=== PATIENT | female | born 1990 | race Hispanic/Latino ===

== ENCOUNTER 2017-03-20 16:11 | Emergency (ER) | payer SELFPAY ==
[~2017-03-20] VITALS: Ht 147.3 cm; Wt 63.5 kg
[~2017-03-20 16:11] MED LIST: CEPH-507 PO; CLIN300C11 PO; GLYB2.5T4 PO; HYDR-3812 PO; IBUP-1773 PO; METR500T21 PO; NITR-65 PO; ONDA8TAB13 PO; PHEN-639 PO; PNV1TABL67 PO; SULF1TAB35 PO; tylenol
[2017-03-20] MEDS ORDERED: HYDROcodone/APAP 5 MG/325 MG (LORTAB) TAB PO ONE (17:00)
[2017-03-20 17:29] LABS: BILIRUBIN,URINE NEGATIVE (NEGATIVE); KETONES,URINE NEGATIVE (NEGATIVE); LEUKOCYTE ESTERASE ,URINE NEGATIVE (NEGATIVE); NITRITE,URINE NEGATIVE (NEGATIVE); PH,URINE 7 (5-9); PROTEIN,URINE NEGATIVE (NEGATIVE); UROBILINOGEN,URINE NORMAL (NORMAL)
[2017-03-20 17:34] LABS: BASOPHILS # (AUTO) 0.1 10^3/uL (0.0-0.1); BASOPHILS % (AUTO) 1 % (0-10); EOSINOPHILS # (AUTO) 0.5 10^3/uL (0.0-0.3); EOSINOPHILS % (AUTO) 6 % (0-10); LYMPHOCYTES # (AUTO) 2.2 X 10^3 (1.0-4.0); LYMPHOCYTES % (AUTO) 24 % (12-44); MEAN CORPUSCULAR HGB CONC 34 G/DL (32-36); MEAN CORPUSCULAR VOLUME 86 FL (80-99); MEAN PLATELET VOLUME 10.7 FL (7.4-10.4); MONOCYTES # (AUTO) 0.6 X 10^3 (0.0-1.0); MONOCYTES % (AUTO) 7 % (0-12); NEUTROPHILS # (AUTO) 5.8 X 10^3 (1.8-7.8); NEUTROPHILS % (AUTO) 63 % (42-75)
[2017-03-20 17:43] LABS: ALANINE AMINOTRANSFERASE 66 U/L (0-55); ALBUMIN 4.4 GM/DL (3.2-4.5); ANION GAP 13 MMOL/L (5-14); ASPARTATE AMINO TRANSFERASE 35 U/L (5-34); BILIRUBIN,TOTAL 0.9 MG/DL (0.1-1.0); BLOOD UREA NITROGEN 12 MG/DL (7-18); BUN/CREATININE RATIO 17 (0-20); CALCIUM 9.4 MG/DL (8.5-10.1); CARBON DIOXIDE 22 MMOL/L (21-32); CHLORIDE 104 MMOL/L (98-107); GFR ESTIMATED > 60; GLUCOSE 125 MG/DL (70-105); HEMOLYSIS 12 (-100-29); LIPEMIA 4 (-100-49); MEAN CORPUSCULAR HEMOGLOBIN 29 PG (25-34); PLATELET COUNT 210 10^3/uL (130-400); POTASSIUM 3.6 MMOL/L (3.6-5.0); RED BLOOD COUNT 5.11 10^6/uL (4.35-5.85); SODIUM 139 MMOL/L (135-145); TOTAL PROTEIN 7.7 GM/DL (6.4-8.2); WHITE BLOOD COUNT 10.3 10^3/uL (4.3-11.0); hs C REACTIVE PROTEIN 0.34 MG/DL (0.00-0.50)
--- NOTE | 2017-03-20 17:47 | Diagnostic Imaging Report ---
INDICATION: Headache for two days. EXAMINATION: CT brain without contrast, 03/20/2017. FINDINGS: Multiple axial images of the brain without contrast. There is no evidence for acute hemorrhage or infarct. There is no mass, mass effect, midline shift or hydrocephalus. The paranasal sinuses and mastoid air cells demonstrate no acute abnormality. IMPRESSION: No acute intracranial process. Dictated by: Dictated on workstation # [id number]
[2017-03-20 17:49] LABS: SQUAMOUS EPITHELIAL CELL,UR 25-50 /HPF
--- NOTE | 2017-03-20 18:02 | ED Headache ---
General Chief Complaint: Head/Cervical Problems Stated Complaint: MIGRAINE/NAUSEA Nursing Triage Note: AMBULATED TO ROOM 07 WITH COMPLAINTS OF HEADACHE X2 DAYS. HAS TAKEN TYLENOL WITH NO RELEAF. WAS SEEN AT THE CLINIC FOR "WAIST PAIN" 2 DAYS AGO AND PRESCRIBED MEDS BUT STATES SHE IS HERE FOR HER HEAD. PT SPEAKS [place] ONLY ET LANGUAGE LINE USED. Nursing Sepsis Screen: No Definite Risk Source: patient, family Exam Limitations: language barrier History of Present Illness Time seen by provider: 17:00 Initial Comments This is a 18-year-old white female presents with a headache of 2 days' duration. The patient is taking Tylenol without relief. The patient has had no associated fever or chills. The patient is complaining of pain in her neck with head motion and mild photophobia. She has had no nausea or vomiting. The patient's recent past medical history includes lower abdominal pain for which she was evaluated at [facility] earlier this week without any significant findings or definite diagnosis. Patient's last child was delivered approximately 6 months ago and she has had periods every 2 weeks following the of her child. There is some history of similar family headaches. The patient denies lateralizing localizing neurologic complaints. Allergies and Home Medications Allergies Coded Allergies: No Known Drug Allergies (Unverified , 10/05/15) Home Medications Ibuprofen 600 Mg Tablet, 600 MG PO Q6H PRN for PAIN, #60 Ref 0 Prescribed by: NAMITA LAMA on 07/25/162027 Sulfamethoxazole/Trimethoprim 1 Each Tablet, 1 EACH PO BID, #14 Prescribed by: JANET NUÑEZ on 10/03/16 1847 [tylenol] , (Reported) Constitutional: No chills, No fever Eyes: Denies Blurred Vision, Photophobia Ears, Nose, Mouth, Throat: denies ear pain Respiratory: No cough Cardiovascular: No chest pain Gastrointestinal: abdominal pain (LLQ), nausea, No vomiting Genitourinary: No decreased output, No frequency Musculoskeletal: No back pain Skin: No rash Psychiatric/Neurological: No Symptoms Reported Past Oyrghpz-Aywnts-Mrzixx Hx Patient Social History Alcohol Use: Denies Use Recreational Drug Use: No Smoking Status: Never a Smoker Recent Foreign Travel: No Contact w/Someone Who Travel: No Recent Infectious Disease Expo: No Recent Hopitalizations: No Immunizations Up To Date Tetanus Booster (TDap): Less than 5yrs PED Vaccines UTD: Yes Date of Influenza Vaccine: May 24, 2016 Seasonal Allergies Seasonal Allergies: No Surgeries HX Surgeries: No Respiratory Hx Respiratory Disorders: No Cardiovascular Hx Cardiac Disorders: No Neurological Hx Neurological Disorders: No Reproductive System : No Hx : 4 Hx Para: 4 Hx Reproductive Disorders: No Sexually Transmitted Disease: No HIV/AIDS: No Female Reproductive Disorders: Polycystic Ovarian Dis Genitourinary Hx Genitourinary Disorders: No Gastrointestinal Hx Gastrointestinal Disorders: No Musculoskeletal Hx Musculoskeletal Disorders: No Endocrine Hx Endocrine Disorders: Yes Endocrine Disorders: Diabetes, Non-Insulin dep HEENT HX ENT Disorders: No Cancer Hx Cancer: No Psychosocial Hx Psychiatric Problems: No Integumentary HX Skin/Integumentary Disorder: No Blood Transfusions Hx Blood Disorders: No Adverse Reaction to a Blood Tr: No Reviewed Nursing Assessment Reviewed/Agree w Nursing PMH: Yes Family Medical History Significant Family History: No Pertinent Family Hx Family Medial History: Patient reports no known family medical history. Physical Exam Vital Signs Vital Sign - Last 12Hours 03/20/17 16:20 Temp 98.0 Capillary Refill : Less Than 3 Seconds General Appearance: WD/WN, mild distress HEENT: normal ENT inspection, pharynx normal Neck: non-tender, full range of motion, supple Cardiovascular: regular rate, rhythm Respiratory: lungs clear Gastrointestinal: normal bowel sounds, non tender, soft Back: normal inspection Extremities: normal range of motion, non-tender Psychiatric: alert, oriented x 3 Motor/Sensory: no motor deficit, no sensory deficit Skin: normal color, warm/dry Progress/Results/Core Measures Results/Orders Lab Results Laboratory Tests Test 03/20/17 17:17 03/20/17 17:22 Range/Units White Blood Count 10.3 4.3-11.0 10^3/uL Red Blood Count 5.11 4.35-5.85 10^6/uL Hemoglobin 15.0 11.5-16.0 G/DL Hematocrit 44 35-52 % Mean Corpuscular Volume 86 80-99 FL Mean Corpuscular Hemoglobin 29 25-34 PG Mean Corpuscular Hemoglobin Concent 34 32-36 G/DL Red Cell Distribution Width 14.0 10.0-14.5 % Platelet Count 210 130-400 10^3/uL Mean Platelet Volume 10.7 H 7.4-10.4 FL Neutrophils (%) (Auto) 63 42-75 % Lymphocytes (%) (Auto) 24 12-44 % Monocytes (%) (Auto) 7 0-12 % Eosinophils (%) (Auto) 6 0-10 % Basophils (%) (Auto) 1 0-10 % Neutrophils # (Auto) 5.8 1.8-7.8 X 10^3 Lymphocytes # (Auto) 2.2 1.0-4.0 X 10^3 Monocytes # (Auto) 0.6 0.0-1.0 X 10^3 Eosinophils # (Auto) 0.5 H 0.0-0.3 10^3/uL Basophils # (Auto) 0.1 0.0-0.1 10^3/uL Sodium Level 139 135-145 MMOL/L Potassium Level 3.6 3.6-5.0 MMOL/L Chloride Level 104 98-107 MMOL/L Carbon Dioxide Level 22 21-32 MMOL/L Anion Gap 13 5-14 MMOL/L Blood Urea Nitrogen 12 7-18 MG/DL Creatinine 0.70 0.60-1.30 MG/DL Estimat Glomerular Filtration Rate > 60 BUN/Creatinine Ratio 17 0-20 Glucose Level 125 H 70-105 MG/DL Calcium Level 9.4 8.5-10.1 MG/DL Total Bilirubin 0.9 0.1-1.0 MG/DL Aspartate Amino Transf (AST/SGOT) 35 H 5-34 U/L Alanine Aminotransferase (ALT/SGPT) 66 H 0-55 U/L Alkaline Phosphatase 102 40-136 U/L C-Reactive Protein High Sensitivity 0.34 0.00-0.50 MG/DL Total Protein 7.7 6.4-8.2 GM/DL Albumin 4.4 3.2-4.5 GM/DL Urine Color YELLOW Urine Clarity SLIGHTLY CLOUDY Urine pH 7 5-9 Urine Specific [place] 1.010 L 1.016-1.022 Urine Protein NEGATIVE NEGATIVE Urine Glucose (UA) NEGATIVE NEGATIVE Urine Ketones NEGATIVE NEGATIVE Urine Nitrite NEGATIVE NEGATIVE Urine Bilirubin NEGATIVE NEGATIVE Urine Urobilinogen NORMAL NORMAL MG/DL Urine Leukocyte Esterase NEGATIVE NEGATIVE Urine RBC (Auto) 5+ H NEGATIVE Urine RBC NONE /HPF Urine WBC 2-5 /HPF Urine Squamous Epithelial Cells 25-50 H /HPF Urine Crystals NONE /LPF Urine Bacteria NEGATIVE /HPF Urine Casts NONE /LPF Urine Mucus NEGATIVE /LPF Urine Culture Indicated NO Urine Test NEGATIVE NEGATIVE My Orders Orders - SAMREEN PEREZ MD Cbc With Automated Diff (03/20/17 16:50) Comprehensive Metabolic Panel (03/20/17 16:50) Ua Culture If Indicated (03/20/17 16:50) Hcg,Qualitative Urine (03/20/17 16:50) Ct Head Wo (03/20/17 16:50) Hs C Reactive Protein (03/20/17 16:50) Hydrocodone/Apap 5/325 Tablet (Lortab 5 (03/20/17 17:00) Prochlorperazine Injection (Compazine In (03/20/17 18:15) Diphenhydramine Injection (Benadryl Inje (03/20/17 18:15) Ketorolac Injection (Toradol Injection) (03/20/17 18:15) Ns Iv 1000 Ml (Sodium Chloride 0.9%) (03/20/17 18:15) Medications Given in ED Current Medications Medications Dose Ordered Sig/Martin Route Start Time Stop Time Status Last Admin Dose Admin Acetaminophen/ Hydrocodone Bitart 2 tab ONCE ONCE PO 03/20/17 17:00 03/20/17 17:01 DC 03/20/17 17:06 2 TAB Vital Signs/I&O Vital Sign - Last 12Hours 03/20/17 16:20 Temp 98.0 B/P (MAP) Point of Care Testing Urine -Bedside: Negative Progress Note : Time: 18:04 Progress Note The patient's headache did not improve with 2 tablets of 5 mg Vicodin. Fortunately the CT of her head and her laboratory evaluation was unremarkable. The patient, through the butting saw operator (who had offered the patient's history), was willing to try IV medication for her headache. The patient will receive IV Toradol, Compazine, Benadryl and a liter of normal saline. If her headache abates I will discharge with instructions follow up closely with her primary care physician on Wednesday. Departure Impression Impression: Primary Impression: Headache Qualified Codes: R51 - Headache Disposition: HOME, SELF-CARE Condition: Improved Departure-Patient Inst. Decision time for Depature: 18:14 Referrals: NAMITA LAAM MD (PCP/Family) Primary Care Physician Patient Instructions: Headache, Adult (DC) Add. Discharge Instructions: Rest at home this weekend. Follow closely with your doctor on Wednesday. Return if any further problems or questions. All discharge instructions reviewed with patient and/or family. Voiced understanding. SAMREEN PEREZ MD Mar 20, 2017 18:01
[2017-03-20] MEDS ORDERED: NS IV 1000 ML 1,000 ML IV SCH (18:15)
[2017-03-20] MEDS ORDERED: KETOROLAC 30 MG/ML VIAL IVP PRN (18:15)
[2017-03-20] MEDS ORDERED: PROCHLORPERAZINE 10 MG/2ML INJ (COMPAZINE) IV ONE (18:15)
[2017-03-20] MEDS ORDERED: diphenhydrAMINE 50 MG/ML INJ (BENADRYL) IM ONE (18:15)
[2017-03-20] MEDS ORDERED: diphenhydrAMINE 50 MG/ML INJ (BENADRYL) IVP ONE (18:30)
[2017-03-20 19:05] VITALS: BP 127/89
== END 2017-03-20 19:05 | disposition home or self-care (01) ==
LOC: EDUNIT# 16:11 → ER 16:13
DX: R51 Headache (principal); E11.9 Type 2 diabetes mellitus without complications; Z32.02 Encounter for pregnancy test, result negative
CPT/HCPCS: 36415; 70450; 80053; 81000; 84703; 85025; 86141; 99282

== ENCOUNTER → 2017-05-27 | Outpatient (CLI) | payer OTHER ==
--- NOTE | 2017-05-27 19:05 | Diagnostic Imaging Report ---
PROCEDURE: US PELVIC (NON OB) TECHNIQUE: Multiple real-time grayscale images were obtained over the pelvis in various projections transabdominally. IMPRESSION: Abnormal uterine bleeding. FINDINGS: The previous pelvic ultrasound exam performed on 10/05/2015 noted that the left adnexal vascular structures did seem prominent and raised the question of pelvic congestion. On this exam, the vascular structures on each side of the uterus do not seem quite as conspicuous as on the prior exam. Both ovaries were identified and were generally unremarkable. There are a few subcentimeter follicles associated with each ovary. There is no solid pelvic mass or free fluid collection noted. The uterus is nongravid and not enlarged measuring 9.7 x 5.4 x 3.9 cm. The endometrium lining is not thickened. There is no focal mass involving the uterus to suggest a fibroid. IMPRESSION: 1. The vessels on both sides of the uterus do not seem as prominent as on the prior exam. There is no clear evidence for pelvic congestion at this time. 2. There is no acute pelvic abnormality identified either. Dictated by: Dictated on workstation # [id number]
== END ==
LOC: RAD 11:31
PROVIDERS: ATTEND Family Medicine
DX: N93.8 Other specified abnormal uterine and vaginal bleeding (principal)
CPT/HCPCS: 76856

== ENCOUNTER 2017-12-17 20:46 | Emergency (ER) | payer SELFPAY ==
[~2017-12-17] VITALS: Ht 147.3 cm; Wt 63.7 kg
[~2017-12-17 20:46] MED LIST changes: +ACHD5005 PO; -HYDR-3812 PO
[2017-12-17] MEDS ORDERED: LACTATED RINGERS 1,000 ML IV ONE (21:37)
[2017-12-17] MEDS ORDERED: ONDANSETRON 4 MG/2 ML (SDV) Z0FRAN IVP ONE (21:45)
[2017-12-17] MEDS ORDERED: HYOSCYAMINE 0.125 MG (LEVSIN) TAB PO ONE (21:45)
[2017-12-17 22:06] LABS: BILIRUBIN,URINE NEGATIVE (NEGATIVE); CLARITY,URINE CLEAR; COLOR,URINE YELLOW; GLUCOSE, URINE (UA) NEGATIVE (NEGATIVE); KETONES,URINE NEGATIVE (NEGATIVE); LEUKOCYTE ESTERASE ,URINE NEGATIVE (NEGATIVE); NITRITE,URINE NEGATIVE (NEGATIVE); PH,URINE 6 (5-9); PROTEIN,URINE 1+ (NEGATIVE); UROBILINOGEN,URINE NORMAL (NORMAL)
[2017-12-17 22:11] LABS: BASOPHILS # (AUTO) 0.1 10^3/uL (0.0-0.1); BASOPHILS % (AUTO) 1 % (0-10); EOSINOPHILS # (AUTO) 0.8 10^3/uL (0.0-0.3); EOSINOPHILS % (AUTO) 6 % (0-10); HEMATOCRIT 42 % (35-52); HEMOGLOBIN 14.4 G/DL (11.5-16.0); LYMPHOCYTES # (AUTO) 3.2 X 10^3 (1.0-4.0); LYMPHOCYTES % (AUTO) 25 % (12-44); MEAN CORPUSCULAR HEMOGLOBIN 30 PG (25-34); MEAN CORPUSCULAR HGB CONC 35 G/DL (32-36); MEAN CORPUSCULAR VOLUME 86 FL (80-99); MEAN PLATELET VOLUME 10.7 FL (7.4-10.4); MONOCYTES # (AUTO) 0.6 X 10^3 (0.0-1.0); MONOCYTES % (AUTO) 5 % (0-12); NEUTROPHILS # (AUTO) 8.1 X 10^3 (1.8-7.8); NEUTROPHILS % (AUTO) 63 % (42-75); PLATELET COUNT 249 10^3/uL (130-400); RED BLOOD COUNT 4.88 10^6/uL (4.35-5.85); RED CELL DISTRIBUTION WIDTH 13.8 % (10.0-14.5); WHITE BLOOD COUNT 12.8 10^3/uL (4.3-11.0)
[2017-12-17 22:20] LABS: BACTERIA,URINE MODERATE /HPF; WBC,URINE >100 /HPF
[2017-12-17 22:27] LABS: ALANINE AMINOTRANSFERASE 42 U/L (0-55); ALBUMIN 4.5 GM/DL (3.2-4.5); ALKALINE PHOSPHATASE 99 U/L (40-136); AMYLASE 69 U/L (25-125); BILIRUBIN,TOTAL 0.4 MG/DL (0.1-1.0); BUN/CREATININE RATIO 15; CALCIUM 10.2 MG/DL (8.5-10.1); CARBON DIOXIDE 26 MMOL/L (21-32); CHLORIDE 104 MMOL/L (98-107); CREATININE SERUM 0.78 MG/DL (0.60-1.30); GFR ESTIMATED > 60; GLUCOSE 120 MG/DL (70-105); LIPASE 34 U/L (8-78); POTASSIUM 3.4 MMOL/L (3.6-5.0); SODIUM 139 MMOL/L (135-145); TOTAL PROTEIN 7.9 GM/DL (6.4-8.2)
[2017-12-17] MEDS ORDERED: IOHEXOL 350 MG/ML 100 ML (OMNIPAQUE 350) VIAL IV ONE (22:45)
[2017-12-17] MEDS ORDERED: NS 250 ML (IVPB) BAG IV ONE (22:45)
[2017-12-17] MEDS ORDERED: ACHD5005 PO (23:42)
[2017-12-17] MEDS ORDERED: PANT40TA2 PO (23:42)
[2017-12-17] MEDS ORDERED: HYOS0.1283 SL (23:42)
[2017-12-17] MEDS ORDERED: ONDA4TAB8 PO (23:42)
--- NOTE | 2017-12-17 23:42 | ED Abdominal Pain ---
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 SON) Exam Limitations: Language Barrier (PT DOES NOT SPEAK ANY SERBIAN) History of Present Illness Date Seen by Provider: Dec 17, 2017 Time Seen by Provider: 21:30 Initial Comments PT C/O RUQ PAIN SINCE 0400 YESTERDAY AM--WOKE HER UP PAIN HAS BEEN CONSTANT NOTHING WORSENS OR IMPROVES PAIN + NAUSEA, AND VOMITED X 1 TODAY NO DIARRHEA NO FEVER NO RADIATION OF PAIN NO URINARY SYMPTOMS HAS BEEN HAVING THIS PROBLEM OFF AND ON X 1 MONTH, WILL GO AWAY FOR A FEW DAYS AND COME BACK FOR A DAY, BUT HAS NOT GONE AWAY THIS TIME HAS NEVER SOUGHT CARE FOR THIS PROBLEM ATE [facility] 2 HOURS AGO LMP--NOW PCP: GEMA Allergies and Home Medications Allergies Coded Allergies: No Known Drug Allergies (Unverified , 10/05/15) Home Medications Hydrocodone Bit/Acetaminophen 1 Tab Tab, 1 EACH PO Q4H Prescribed by: KENA SPIVEY on 12/17/172341 Hyoscyamine Sulfate 0.125 Mg Tab.subl, 1-2 TAB SL Q4H Prescribed by: KENA SPIVEY on 12/17/172341 Ibuprofen 600 Mg Tablet, 600 MG PO Q6H PRN for PAIN Prescribed by: NAMITA LAMA on 07/25/162027 Ondansetron 4 Mg Tab.rapdis, 4 MG PO Q4H Prescribed by: KENA SPIVEY on 12/17/172341 Pantoprazole Sodium 40 Mg Tablet.dr, 40 MG PO DAILY Prescribed by: KENA SPIVEY on 12/17/172341 Sulfamethoxazole/Trimethoprim 1 Each Tablet, 1 EACH PO BID Prescribed by: JANET NUÑEZ on 10/03/16 1847 Patient Home Medication List Home Medication List Reviewed: Yes Review of Systems Constitutional: no symptoms reported Respiratory: No Symptoms Reported Cardiovascular: No Symptoms Reported Gastrointestinal: See HPI, Abdominal Pain, Denies Constipated, Denies Diarrhea , Nausea, Vomiting Genitourinary: No Symptoms Reported Musculoskeletal: no symptoms reported, No back pain Skin: no symptoms reported Psychiatric/Neurological: No Symptoms Reported Endocrine: No Symptoms Reported Hematologic/Lymphatic: No Symptoms Reported Past Kzsdlng-Ezndts-Faehaw Hx Patient Social History Alcohol Use: Denies Use Recreational Drug Use: No Smoking Status: Never a Smoker Recent Foreign Travel: No Contact w/Someone Who Travel: No Recent Infectious Disease Expo: No Recent Hopitalizations: No Immunizations Up To Date Tetanus Booster (TDap): Less than 5yrs PED Vaccines UTD: Yes Date of Influenza Vaccine: May 24, 2016 Seasonal Allergies Seasonal Allergies: No Surgeries History of Surgeries: No Respiratory History of Respiratory Disorde: No Cardiovascular History of Cardiac Disorders: No Neurological History of Neurological Disord: No Reproductive System : No Hx Reproductive Disorders: No Sexually Transmitted Disease: No HIV/AIDS: No Female Reproductive Disorders: Ovarian Cyst Genitourinary History of Genitourinary Disor: No Gastrointestinal History of Gastrointestinal Di: No Musculoskeletal History of Musculoskeletal Dis: No Endocrine History of Endocrine Disorders: Yes (GESTATAIONAL DIABETES) Endocrine Disorders: Diabetes, Non-Insulin dep HEENT History of HEENT Disorders: No Cancer History of Cancer: No Psychosocial History of Psychiatric Problem: No Integumentary History of Skin or Integumenta: No Blood Transfusions History of Blood Disorders: No Adverse Reaction to a Blood Tr: No Family Medical History Family Medial History: Patient reports no known family medical history. Physical Exam Vital Signs VS - Last 72 Hours, by Label 12/17/17 21:22 Temp 98.2 Pulse 64 Resp 18 B/P (MAP) 133/87 (102) Pulse Ox 98 Capillary Refill : Less Than 3 Seconds General Appearance: WD/WN, other (LOOKS UNCOMFORTABLE, HOLDING RUQ) HEENT: PERRL/EOMI, No scleral icterus (R), No scleral icterus (L) Neck: normal inspection Respiratory: normal breath sounds, no respiratory distress, no accessory muscle use Cardiovascular: regular rate, rhythm, no murmur Gastrointestinal: normal bowel sounds, soft, no organomegaly, no pulsatile mass , No distended, guarding, No rebound, tenderness (RUQ), No hernia, No mass Extremities: normal inspection, normal capillary refill Back: normal inspection, no CVA tenderness Neurologic/Psychiatric: geropsychologist II-XII nml as tested, no motor/sensory deficits, alert, oriented x 3 Skin: normal color, warm/dry, No jaundice Progress/Results/Core Measures Results/Orders Lab Results Laboratory Tests Test 12/17/17 21:50 Range/Units White Blood Count 12.8 H 4.3-11.0 10^3/uL Red Blood Count 4.88 4.35-5.85 10^6/uL Hemoglobin 14.4 11.5-16.0 G/DL Hematocrit 42 35-52 % Mean Corpuscular Volume 86 80-99 FL Mean Corpuscular Hemoglobin 30 25-34 PG Mean Corpuscular Hemoglobin Concent 35 32-36 G/DL Red Cell Distribution Width 13.8 10.0-14.5 % Platelet Count 249 130-400 10^3/uL Mean Platelet Volume 10.7 H 7.4-10.4 FL Neutrophils (%) (Auto) 63 42-75 % Lymphocytes (%) (Auto) 25 12-44 % Monocytes (%) (Auto) 5 0-12 % Eosinophils (%) (Auto) 6 0-10 % Basophils (%) (Auto) 1 0-10 % Neutrophils # (Auto) 8.1 H 1.8-7.8 X 10^3 Lymphocytes # (Auto) 3.2 1.0-4.0 X 10^3 Monocytes # (Auto) 0.6 0.0-1.0 X 10^3 Eosinophils # (Auto) 0.8 H 0.0-0.3 10^3/uL Basophils # (Auto) 0.1 0.0-0.1 10^3/uL Urine Color YELLOW Urine Clarity CLEAR Urine pH 6 5-9 Urine Specific [place] 1.025 H 1.016-1.022 Urine Protein 1+ H NEGATIVE Urine Glucose (UA) NEGATIVE NEGATIVE Urine Ketones NEGATIVE NEGATIVE Urine Nitrite NEGATIVE NEGATIVE Urine Bilirubin NEGATIVE NEGATIVE Urine Urobilinogen NORMAL NORMAL MG/DL Urine Leukocyte Esterase NEGATIVE NEGATIVE Urine RBC (Auto) 5+ H NEGATIVE Urine RBC .100 /HPF Urine WBC >100 H /HPF Urine Squamous Epithelial Cells 2-5 /HPF Urine Crystals NONE /LPF Urine Bacteria MODERATE H /HPF Urine Casts NONE /LPF Urine Mucus NEGATIVE /LPF Urine Culture Indicated NO Sodium Level 139 135-145 MMOL/L Potassium Level 3.4 L 3.6-5.0 MMOL/L Chloride Level 104 98-107 MMOL/L Carbon Dioxide Level 26 21-32 MMOL/L Anion Gap 9 5-14 MMOL/L Blood Urea Nitrogen 12 7-18 MG/DL Creatinine 0.78 0.60-1.30 MG/DL Estimat Glomerular Filtration Rate > 60 BUN/Creatinine Ratio 15 Glucose Level 120 H 70-105 MG/DL Calcium Level 10.2 H 8.5-10.1 MG/DL Total Bilirubin 0.4 0.1-1.0 MG/DL Aspartate Amino Transf (AST/SGOT) 32 5-34 U/L Alanine Aminotransferase (ALT/SGPT) 42 0-55 U/L Alkaline Phosphatase 99 40-136 U/L Total Protein 7.9 6.4-8.2 GM/DL Albumin 4.5 3.2-4.5 GM/DL Amylase Level 69 25-125 U/L Lipase 34 8-78 U/L My Orders Orders - KENA SPIVEY DO Hyoscyamine Sl Tablet (Levsin Sl Tablet) (12/17/17 21:45) Ondansetron Injection (Zofran Injectio (12/17/17 21:45) Saline Lock/Iv-Start (12/17/17 21:37) Urine Bedside (12/17/17 21:37) Amylase (12/17/17 21:37) Cbc With Automated Diff (12/17/17 21:37) Comprehensive Metabolic Panel (12/17/17 21:37) Lipase (12/17/17 21:37) Ua Culture If Indicated (12/17/17 21:37) Ct Abdomen/Pelvis W (12/17/17 21:37) Acute Abd Series (12/17/17 21:37) Saline Lock/Iv-Start (12/17/17 21:37) Lactated Ringers (Lr 1000 Ml Iv Solution (12/17/17 21:37) Urine Culture (12/17/17 22:41) Iohexol Injection (Omnipaque 350 Mg/Ml 1 (12/17/17 22:45) Ns (Ivpb) (Sodium Chloride 0.9%) (12/17/17 22:45) Ketorolac Injection (Toradol Injection) (12/17/17 23:45) Pantoprazole Injection (Protonix Injecti (12/17/17 23:45) Rx-Hydrocodone/Apap 5-325 Mg (Rx-Vicodin (12/18/17 00:00) Rx-Ondansetron Po (Rx-Zofran Po) (12/17/17 23:48) Medications Given in ED Current Medications Medications Dose Ordered Sig/Martin Route Start Time Stop Time Status Last Admin Dose Admin Hyoscyamine Sulfate 0.25 mg ONCE ONCE PO 12/17/17 21:45 12/17/17 21:46 DC 12/17/17 21:50 0.25 MG Iohexol 100 ml ONCE ONCE IV 12/17/17 22:45 12/17/17 22:46 DC 12/17/17 22:44 100 ML Lactated Ringer's 1,000 ml @ 0 mls/hr Q0M ONCE IV 12/17/17 21:37 12/17/17 21:40 DC 12/17/17 21:50 0 MLS/HR Ondansetron HCl 4 mg ONCE ONCE IVP 12/17/17 21:45 12/17/17 21:46 DC 12/17/17 21:50 4 MG Sodium Chloride 250 ml ONCE ONCE IV 12/17/17 22:45 12/17/17 22:46 DC 12/17/17 22:44 80 ML Vital Signs/I&O Vital Sign - Last 12Hours 12/17/17 21:22 Temp 98.2 Pulse 64 Resp 18 B/P (MAP) 133/87 (102) Pulse Ox 98 Blood Pressure Mean: 102 Point of Care Testing Urine -Bedside: Negative Progress Note : Progress Note SYMPTOMS EASED AT DISMISSAL Diagnostic Imaging Comments ACUTE ABDOMEN XRAYS--NO ACUTE PROCESS, PENDING RADIOLOGIST REVIEW CT ABDOMEN/PELVIS--GALLBLADDER DISTENTION WITH PERICHOLECYSTIC FLUID, PER [facility] VIA FAX @ [id number] Reviewed: Reviewed by Me Departure Impression Impression: Primary Impression: Recurrent biliary colic Disposition: HOME, SELF-CARE Condition: Improved Departure-Patient Inst. Referrals: NAMITA LAMA MD (PCP/Family) Primary Care Physician LORY BROOKE MD Patient Instructions: Gallstones (DC) Add. Discharge Instructions: CLEAR LIQUIDS--WATER, BROTH, JELLO, GATORADE WHEN YOUR PAIN IS GONE, ADD BRATS DIET TO CLEAR LIQUIDS--BANANAS, RICE, APPLESAUCE, TOAST, SALTINES FOLLOW UP WITH DR. BROOKE NEXT WEEK RETURN TO ER IF SYMPTOMS WORSEN All discharge instructions reviewed with patient and/or family. Voiced understanding. Scripts Hydrocodone Bit/Acetaminophen (Hydrocodone/Acetaminophen 5/325mg Tablet) 1 Tab Tab 1 EACH PO Q4H, #20 TAB Prov: KENA SPIVEY DO 12/17/17 Ondansetron (Zofran Odt) 4 Mg Tab.rapdis 4 MG PO Q4H for Nausea/Vomiting, #10 TAB Prov: KENA SPIVEY DO 12/17/17 Hyoscyamine Sulfate (Levsin-Sl) 0.125 Mg Tab.subl 1-2 TAB SL Q4H for Abdominal Pain, #15 TAB Prov: KENA SPIVEY DO 12/17/17 Pantoprazole Sodium (Protonix) 40 Mg Tablet.dr 40 MG PO DAILY, #15 TAB Prov: KENA SPIVEY DO 12/17/17 KENA SPIVEY DO Dec 17, 2017 23:42
[2017-12-17] MEDS ORDERED: PANTOPRAZOLE 40 MG/10 ML (PROTONIX) VIAL IV ONE (23:45)
[2017-12-17] MEDS ORDERED: KETOROLAC 30 MG/ML VIAL IVP ONE (23:45)
[2017-12-17] MEDS ORDERED: RX-ONDANSETRON 4 MG ODT (ZOFRAN) PPK #4 PO STA (23:48)
[2017-12-17 23:58] VITALS: BP 133/87
[2017-12-18] MEDS ORDERED: RX-HYDROCODONE/APAP 5/325 MG #4 TAB PK PO PRN
--- NOTE | 2017-12-18 06:56 | Diagnostic Imaging Report ---
PROCEDURE: CT abdomen and pelvis with contrast. TECHNIQUE: Multiple contiguous axial images were obtained through the abdomen and pelvis after administration of intravenous contrast. INDICATION: Abdominal pain. FINDINGS: The heart size is normal. The lung bases are clear. The liver is normal in size without focal lesions. There is no biliary duct dilatation. The gallbladder appears somewhat distended and there is some questionable pericholecystic fluid. There is no cholelithiasis. Spleen is normal. Pancreas, adrenal glands, and kidneys are unremarkable. The abdominal aorta is nonaneurysmal. Bowel gas pattern is nonspecific. There is no free air. Appendix is normal. There is no ascites. There are no focal inflammatory changes. Bladder is normal. Uterus is unremarkable. Osseous structures are unremarkable. IMPRESSION: Gallbladder distention with some suspected pericholecystic fluid. There are no calcified gallstones or biliary ductal dilatation. Recommend clinical correlation and if warranted followup with right upper quadrant ultrasound. No other acute abnormality in the abdomen or pelvis Dictated by: Dictated on workstation # [id number]
--- NOTE | 2017-12-18 07:32 | Diagnostic Imaging Report ---
INDICATION: Epigastric pain. Three views were obtained. FINDINGS: Heart size is normal. Lungs are clear. Bowel gas pattern is nonspecific. There is no free air. There are no abnormal abdominal calcifications. IMPRESSION: No acute cardiopulmonary abnormality. Nonspecific bowel gas pattern Dictated by: Dictated on workstation # [id number]
== END 2017-12-17 23:58 | disposition home or self-care (01) ==
LOC: EDUNIT# 20:46 → ER 20:47
DX: K80.50 Calculus of bile duct without cholangitis or cholecystitis without obstruction (principal); E11.9 Type 2 diabetes mellitus without complications; Z87.42 Personal history of other diseases of the female genital tract
CPT/HCPCS: 36415; 74022; 74177; 80053; 81000; 82150; 83690; 84703; 85025; 87077; 87088; 87186; 96361; 96374; 96375

== ENCOUNTER 2018-03-01 03:57 | Emergency (ER) | payer OTHER ==
[~2018-03-01] VITALS: Ht 147.3 cm; Wt 64.4 kg
[~2018-03-01 03:57] MED LIST changes: +HYOS0.1283 SL; +ONDA4TAB8 PO; +PANT40TA2 PO
[2018-03-01 04:17] LABS: BILIRUBIN,URINE NEGATIVE (NEGATIVE); CLARITY,URINE CLEAR; COLOR,URINE YELLOW; GLUCOSE, URINE (UA) NEGATIVE (NEGATIVE); KETONES,URINE NEGATIVE (NEGATIVE); LEUKOCYTE ESTERASE ,URINE 1+ (NEGATIVE); NITRITE,URINE NEGATIVE (NEGATIVE); PH,URINE 7 (5-9); PROTEIN,URINE NEGATIVE (NEGATIVE); UROBILINOGEN,URINE NORMAL (NORMAL)
[2018-03-01] MEDS ORDERED: LACTATED RINGERS 1,000 ML IV ONE (04:21)
[2018-03-01] MEDS ORDERED: KETOROLAC 30 MG/ML VIAL IVP STA (04:21)
[2018-03-01 04:26] LABS: BACTERIA,URINE TRACE /HPF; RBC,URINE RARE /HPF; WBC,URINE 0-2 /HPF
[2018-03-01] MEDS ORDERED: HYOSCYAMINE 0.125 MG (LEVSIN) TAB PO ONE (04:30)
[2018-03-01] MEDS ORDERED: ONDANSETRON 4 MG/2 ML (SDV) Z0FRAN IVP ONE (04:30)
[2018-03-01] MEDS ORDERED: PANTOPRAZOLE 40 MG/10 ML (PROTONIX) VIAL IV ONE (04:30)
[2018-03-01 04:43] LABS: BASOPHILS # (AUTO) 0.1 10^3/uL (0.0-0.1); BASOPHILS % (AUTO) 1 % (0-10); EOSINOPHILS # (AUTO) 0.5 10^3/uL (0.0-0.3); EOSINOPHILS % (AUTO) 4 % (0-10); HEMATOCRIT 41 % (35-52); HEMOGLOBIN 14.4 G/DL (11.5-16.0); LYMPHOCYTES # (AUTO) 3.5 X 10^3 (1.0-4.0); LYMPHOCYTES % (AUTO) 28 % (12-44); MEAN CORPUSCULAR HEMOGLOBIN 30 PG (25-34); MEAN CORPUSCULAR HGB CONC 35 G/DL (32-36); MEAN CORPUSCULAR VOLUME 85 FL (80-99); MONOCYTES # (AUTO) 0.9 X 10^3 (0.0-1.0); MONOCYTES % (AUTO) 7 % (0-12); NEUTROPHILS # (AUTO) 7.6 X 10^3 (1.8-7.8); NEUTROPHILS % (AUTO) 60 % (42-75); PLATELET COUNT 246 10^3/uL (130-400); RED BLOOD COUNT 4.79 10^6/uL (4.35-5.85); RED CELL DISTRIBUTION WIDTH 13.8 % (10.0-14.5); WHITE BLOOD COUNT 12.6 10^3/uL (4.3-11.0)
[2018-03-01 05:03] LABS: ALANINE AMINOTRANSFERASE 87 U/L (0-55); ALBUMIN 4.6 GM/DL (3.2-4.5); ALKALINE PHOSPHATASE 115 U/L (40-136); AMYLASE 67 U/L (25-125); BILIRUBIN,TOTAL 0.9 MG/DL (0.1-1.0); BUN/CREATININE RATIO 17; CALCIUM 8.9 MG/DL (8.5-10.1); CARBON DIOXIDE 23 MMOL/L (21-32); CHLORIDE 104 MMOL/L (98-107); CREATININE SERUM 0.75 MG/DL (0.60-1.30); GFR ESTIMATED > 60; GLUCOSE 132 MG/DL (70-105); LIPASE 32 U/L (8-78); POTASSIUM 3.5 MMOL/L (3.6-5.0); SODIUM 140 MMOL/L (135-145); TOTAL PROTEIN 8.2 GM/DL (6.4-8.2)
--- NOTE | 2018-03-01 05:22 | ED Abdominal Pain ---
General Chief Complaint: Abdominal/GI Problems Stated Complaint: ABD PAIN Nursing Triage Note: PT TO ED 7 W/ SON FOR C/O ABD PAIN ONSET 0000. REPORTS N/V W/ PAIN. NO OTHER C/O VOICED Sepsis Screen: No Definite Risk Source of Information: [employer] (LANGUAGE LINE + 13 Y.O. SON) Exam Limitations: Language Barrier (PT SPEAKS NO DANISH) History of Present Illness Date Seen by Provider: March 01, 2018 Time Seen by Provider: 04:10 Initial Comments PT ARRIVES VIA POV WITH SON C/O RUQ AND EPIGASTRIC PAIN SINCE MIDNIGHT C/O NAUSEA/VOMITING/DIARRHEA--VOMITED X 2, DIARRHEA X 2 NO URINARY SYMPTOMS NO FEVER HAS HAD SAME THING OFF AND ON FOR SEVERAL MONTHS--LAST TIME WAS 3 MONTHS AGO WAS SEEN IN ER IN DECEMBER AND DX WITH BILIARY COLIC AND REFERRED TO DR. BROOKE IS UNCLEAR IF PT ACTUALLY SAW SURGEON OR NOT, BUT SON RELATES THAT SHE WAS POSSIBLY SUPPOSED TO HAVE SURGERY ON HER GALLBLADDER IN FEBRUARY BUT DID NOT HAVE IT DONE FOR UNKNOWN REASONS. PCP: G[facility] Allergies and Home Medications Allergies Coded Allergies: No Known Drug Allergies (Unverified , 10/05/15) Home Medications Hydrocodone Bit/Acetaminophen 1 Tab Tab, 1 EACH PO Q4H Prescribed by: KENA SPIVEY on 12/17/17 234 Hyoscyamine Sulfate 0.125 Mg Tab.subl, 1-2 TAB SL Q4H Prescribed by: KENA SPIVEY on 12/17/172341 Ibuprofen 600 Mg Tablet, 600 MG PO Q6H PRN for PAIN Prescribed by: NAMITA LAMA on 07/25/162027 Ondansetron 4 Mg Tab.rapdis, 4 MG PO Q4H Prescribed by: KENA SPIVEY on 12/17/172341 Pantoprazole Sodium 40 Mg Tablet.dr, 40 MG PO DAILY Prescribed by: KENA SPIVEY on 12/17/172341 Sulfamethoxazole/Trimethoprim 1 Each Tablet, 1 EACH PO BID Prescribed by: JANET NUÑEZ on 10/03/16 1847 Patient Home Medication List Home Medication List Reviewed: Yes Review of Systems Constitutional: no symptoms reported Respiratory: No Symptoms Reported Cardiovascular: No Symptoms Reported Gastrointestinal: See HPI, Abdominal Pain, Diarrhea, Nausea, Vomiting Genitourinary: No Symptoms Reported Musculoskeletal: no symptoms reported Skin: no symptoms reported Psychiatric/Neurological: No Symptoms Reported Endocrine: No Symptoms Reported Hematologic/Lymphatic: No Symptoms Reported Past Vsenigf-Tuzgwy-Jorlkq Hx Patient Social History Alcohol Use: Denies Use Recreational Drug Use: No Smoking Status: Never a Smoker Recent Foreign Travel: No Contact w/Someone Who Travel: No Recent Infectious Disease Expo: No Recent Hopitalizations: No Physical Abuse: No Sexual Abuse: No Mistreated: No Fear: No Immunizations Up To Date Tetanus Booster (TDap): Less than 5yrs PED Vaccines UTD: Yes Date of Influenza Vaccine: May 24, 2016 Seasonal Allergies Seasonal Allergies: No Past Medical History Surgeries: No Respiratory: No Cardiac: No Neurological: No Reproductive Disorders: No Female Reproductive Disorders: Ovarian Cyst Sexually Transmitted Disease: No HIV/AIDS: No Genitourinary: No Gastrointestinal: Yes Gall Bladder Disease Musculoskeletal: No Endocrine: Yes (GESTATAIONAL DIABETES) Diabetes, Non-Insulin dep HEENT: No Cancer: No Psychosocial: No Nursing Suicide Risk Score: 0 Integumentary: No Blood Disorders: No Adverse Reaction/Blood Tranf: No Family Medical History Patient reports no known family medical history. Physical Exam Vital Signs Vital Signs - First Documented 03/01/18 04:04 Temp 97.8 Pulse 98 Resp 20 B/P (MAP) 134/87 (103) Pulse Ox 99 O2 Delivery Room Air Capillary Refill : Less Than 3 Seconds General Appearance: WD/WN, no apparent distress (BUT LOOKS UNCOMFORTABLE, HOLDING RUQ) HEENT: PERRL/EOMI; No scleral icterus (R), No scleral icterus (L) Neck: normal inspection Respiratory: normal breath sounds, no respiratory distress, no accessory muscle use Cardiovascular: regular rate, rhythm, no murmur Gastrointestinal: normal bowel sounds, soft, no organomegaly, no pulsatile mass ; No distended; guarding; No rebound; tenderness (EPIGASTRIC AND RUQ); No hernia , No mass Extremities: normal inspection Back: normal inspection, no CVA tenderness Neurologic/Psychiatric: police aide II-XII nml as tested, no motor/sensory deficits, alert, oriented x 3 Skin: normal color, warm/dry; No rash Progress/Results/Core Measures Results/Orders Lab Results Laboratory Tests Test 03/01/18 04:07 03/01/18 04:37 Range/Units Urine Color YELLOW Urine Clarity CLEAR Urine pH 7 5-9 Urine Specific [place] 1.010 L 1.016-1.022 Urine Protein NEGATIVE NEGATIVE Urine Glucose (UA) NEGATIVE NEGATIVE Urine Ketones NEGATIVE NEGATIVE Urine Nitrite NEGATIVE NEGATIVE Urine Bilirubin NEGATIVE NEGATIVE Urine Urobilinogen NORMAL NORMAL MG/DL Urine Leukocyte Esterase 1+ H NEGATIVE Urine RBC (Auto) NEGATIVE NEGATIVE Urine RBC RARE /HPF Urine WBC 0-2 /HPF Urine Squamous Epithelial Cells 5-10 /HPF Urine Crystals NONE /LPF Urine Bacteria TRACE /HPF Urine Casts NONE /LPF Urine Mucus NEGATIVE /LPF Urine Culture Indicated NO Urine Test NEGATIVE NEGATIVE White Blood Count 12.6 H 4.3-11.0 10^3/uL Red Blood Count 4.79 4.35-5.85 10^6/uL Hemoglobin 14.4 11.5-16.0 G/DL Hematocrit 41 35-52 % Mean Corpuscular Volume 85 80-99 FL Mean Corpuscular Hemoglobin 30 25-34 PG Mean Corpuscular Hemoglobin Concent 35 32-36 G/DL Red Cell Distribution Width 13.8 10.0-14.5 % Platelet Count 246 130-400 10^3/uL Mean Platelet Volume 11.0 H 7.4-10.4 FL Neutrophils (%) (Auto) 60 42-75 % Lymphocytes (%) (Auto) 28 12-44 % Monocytes (%) (Auto) 7 0-12 % Eosinophils (%) (Auto) 4 0-10 % Basophils (%) (Auto) 1 0-10 % Neutrophils # (Auto) 7.6 1.8-7.8 X 10^3 Lymphocytes # (Auto) 3.5 1.0-4.0 X 10^3 Monocytes # (Auto) 0.9 0.0-1.0 X 10^3 Eosinophils # (Auto) 0.5 H 0.0-0.3 10^3/uL Basophils # (Auto) 0.1 0.0-0.1 10^3/uL Sodium Level 140 135-145 MMOL/L Potassium Level 3.5 L 3.6-5.0 MMOL/L Chloride Level 104 98-107 MMOL/L Carbon Dioxide Level 23 21-32 MMOL/L Anion Gap 13 5-14 MMOL/L Blood Urea Nitrogen 13 7-18 MG/DL Creatinine 0.75 0.60-1.30 MG/DL Estimat Glomerular Filtration Rate > 60 BUN/Creatinine Ratio 17 Glucose Level 132 H 70-105 MG/DL Calcium Level 8.9 8.5-10.1 MG/DL Total Bilirubin 0.9 0.1-1.0 MG/DL Aspartate Amino Transf (AST/SGOT) 125 H 5-34 U/L Alanine Aminotransferase (ALT/SGPT) 87 H 0-55 U/L Alkaline Phosphatase 115 40-136 U/L Total Protein 8.2 6.4-8.2 GM/DL Albumin 4.6 H 3.2-4.5 GM/DL Amylase Level 67 25-125 U/L Lipase 32 8-78 U/L My Orders Orders - KENA SPIVEY DO Urine Bedside (03/01/18 04:11) Ua Culture If Indicated (03/01/18 04:11) Hcg,Qualitative Urine (03/01/18 04:19) Saline Lock/Iv-Start (03/01/18 04:21) Amylase (03/01/18 04:21) Cbc With Automated Diff (03/01/18 04:21) Comprehensive Metabolic Panel (03/01/18 04:21) Lipase (03/01/18 04:21) Ketorolac Injection (Toradol Injection) (03/01/18 04:21) Ondansetron Injection (Zofran Injectio (03/01/18 04:30) Saline Lock/Iv-Start (03/01/18 04:21) Lactated Ringers (Lr 1000 Ml Iv Solution (03/01/18 04:21) Pantoprazole Injection (Protonix Injecti (03/01/18 04:30) Hyoscyamine Sl Tablet (Levsin Sl Tablet) (03/01/18 04:30) Ct Abdomen/Pelvis W (03/01/18 04:24) Iohexol Injection (Omnipaque 350 Mg/Ml 1 (03/01/18 05:30) Ns (Ivpb) (Sodium Chloride 0.9%) (03/01/18 05:30) Fentanyl Injection (Sublimaze Injection (03/01/18 06:12) Medications Given in ED Current Medications Medications Dose Ordered Sig/Martin Route Start Time Stop Time Status Last Admin Dose Admin Hyoscyamine Sulfate 0.25 mg ONCE ONCE PO 03/01/18 04:30 03/01/18 04:31 DC 03/01/18 04:42 0.25 MG Iohexol 100 ml ONCE ONCE IV 03/01/18 05:30 03/01/18 05:31 DC 03/01/18 05:21 100 ML Lactated Ringer's 1,000 ml @ 0 mls/hr Q0M ONCE IV 03/01/18 04:21 03/01/18 04:23 DC 03/01/18 04:41 1,000 MLS/HR Ondansetron HCl 4 mg ONCE ONCE IVP 03/01/18 04:30 03/01/18 04:31 DC 03/01/18 04:41 4 MG Pantoprazole 40 mg ONCE ONCE IV 03/01/18 04:30 03/01/18 04:31 DC 03/01/18 04:41 40 MG Sodium Chloride 250 ml ONCE ONCE IV 03/01/18 05:30 03/01/18 05:31 DC 03/01/18 05:21 80 ML Vital Signs/I&O 03/01/18 04:04 Temp 97.8 Pulse 98 Resp 20 B/P (MAP) 134/87 (103) Pulse Ox 99 O2 Delivery Room Air Blood Pressure Mean: 103 Progress Progress Note : Progress Note SYMPTOMS IMPROVED AT DISMISSAL Diagnostic Imaging Comments CT ABDOMEN/PELVIS--NO ACUTE PROCESS, HEPATIC STEATOSIS, PER [facility] VIA FAX @ [id number] Reviewed: Reviewed by Me Departure Impression Primary Impression: Recurrent biliary colic Additional Impression: MILDLY ELEVATED LIVER ENZYMES Disposition: 01 HOME, SELF-CARE Condition: Improved Departure-Patient Inst. Referrals: NAMITA LAMA MD (PCP/Family) Primary Care Physician LORY BROOKE MD Patient Instructions: POSS GALLSTONE-W/BILIARY COLIC Add. Discharge Instructions: CLEAR LIQUIDS--WATER, BROTH, JELLO, GATORADE WHEN YOUR PAIN AND NAUSEA IS GONE, ADD BRATS DIET TO CLEAR LIQUIDS--BANANAS, RICE, APPLESAUCE, TOAST, SALTINES FOLLOW UP WITH DR. BROOKE THIS WEEK FOR FURTHER CARE--CALL TODAY TO SCHEDULE APPOINTMENT All discharge instructions reviewed with patient and/or family. Voiced understanding. Scripts Ondansetron (Zofran Odt) 4 Mg Tab.rapdis 4 MG PO Q4H for Nausea/Vomiting, #10 TAB Prov: KENA SPIVEY DO 03/01/18 Pantoprazole Sodium (Protonix) 40 Mg Tablet.dr 40 MG PO DAILY, #15 TAB Prov: KENA SPIVEY DO 03/01/18 Hyoscyamine Sulfate (Levsin-Sl) 0.125 Mg Tab.subl 1-2 TAB SL Q4H for Abdominal Pain, #10 TAB Prov: KENA SPIVEY DO 03/01/18 Hydrocodone Bit/Acetaminophen (Hydrocodone/Acetaminophen 5/325mg Tablet) 1 Tab Tab 1 EACH PO Q4H, #20 TAB Prov: KENA SPIVEY DO 03/01/18 KENA SPIVEY DO March 01, 2018 05:22
[2018-03-01] MEDS ORDERED: IOHEXOL 350 MG/ML 100 ML (OMNIPAQUE 350) VIAL IV ONE (05:30)
[2018-03-01] MEDS ORDERED: NS 250 ML (IVPB) BAG IV ONE (05:30)
[2018-03-01] MEDS ORDERED: fentaNYL INJECTION 100 MCG/2 ML AMP IVP STA (06:12)
[2018-03-01] MEDS ORDERED: HYOS0.1283 SL (06:16)
[2018-03-01] MEDS ORDERED: PANT40TA2 PO (06:16)
[2018-03-01] MEDS ORDERED: ONDA4TAB8 PO (06:16)
[2018-03-01] MEDS ORDERED: ACHD5005 PO (06:16)
[2018-03-01 06:37] VITALS: BP 111/75
--- NOTE | 2018-03-01 06:40 | Diagnostic Imaging Report ---
PROCEDURE: CT abdomen and pelvis with contrast. TECHNIQUE: Multiple contiguous axial images were obtained through the abdomen and pelvis after administration of intravenous contrast. INDICATION: Epigastric pain COMPARISON: 12/17/2017 FINDINGS: The lung bases are clear. There is diffuse hepatic steatosis. The portal vein enhances normally. No focal hepatic mass is seen. The gallbladder appears mildly distended but otherwise unremarkable. There is no biliary dilatation. The pancreas, spleen and adrenal glands appear unremarkable. The kidneys, ureters, and bladder appear unremarkable. The uterus and adnexa appear unremarkable. The appendix appears normal. There is no free fluid, free air or adenopathy. No evidence of bowel obstruction. Abdominal aorta appears normal in caliber. No acute osseous abnormality is suspected. IMPRESSION: 1. No evidence of an acute abnormality in the abdomen or pelvis 2. Diffuse hepatic steatosis Agree with [facility] interpretation Dictated by: Dictated on workstation # [id number]
== END 2018-03-01 06:37 | disposition home or self-care (01) ==
LOC: EDUNIT# 03:57 → ER 04:00
DX: K80.50 Calculus of bile duct without cholangitis or cholecystitis without obstruction (principal); R74.8 Abnormal levels of other serum enzymes; Z87.19 Personal history of other diseases of the digestive system; E11.9 Type 2 diabetes mellitus without complications; Z87.42 Personal history of other diseases of the female genital tract
CPT/HCPCS: 36415; 74177; 80053; 81000; 82150; 83690; 84703; 85025; 96374; 96375

== ENCOUNTER 2019-08-27 16:36 | Emergency (ER) | payer OTHER ==
[~2019-08-27] VITALS: Ht 149.9 cm; Wt 63.5 kg
[~2019-08-27 16:36] MED LIST changes: +METR-145 PO; -METR500T21 PO
[2019-08-27] MEDS ORDERED: NS IV 1000 ML 1,000 ML IV SCH (17:00)
[2019-08-27] MEDS ORDERED: KETOROLAC 30 MG/ML VIAL IVP ONE (17:00)
--- NOTE | 2019-08-27 17:00 | NUR ---
Pt speaks minimal Yi. Son @ side translating for pt.
--- NOTE | 2019-08-27 17:09 | ED General ---
General Chief Complaint: Cough/Cold/Flu Symptoms Stated Complaint: FEVER/CHILLS/BODY ACHES Nursing Triage Note: PT AMBULATE TO TRIAGE WITH C/O COUGH, FEVER, BODY ACHES, BURNING WITH URINATION, AND BILAT FLANK PAIN X3 DAYS. Nursing Sepsis Screen: No Definite Risk Source of Information: Patient Exam Limitations: No Limitations History of Present Illness Date Seen by Provider: Aug 27, 2019 Time Seen by Provider: 17:08 Initial Comments To ER with dysuria, bilateral flank pain, fever and chills and general body aches since about noon yesterday. She's also had a cough. Timing/Duration: 1-2 Days Severity: Moderate Associated Systoms: Cough, Fever/Chills, Nausea/Vomiting Allergies and Home Medications Allergies Coded Allergies: No Known Drug Allergies (Unverified , 10/05/15) Home Medications Hydrocodone Bit/Acetaminophen 1 Tab Tab, 1 EACH PO Q4H Prescribed by: KENA SPIVEY on 12/17/172341 Hydrocodone Bit/Acetaminophen 1 Tab Tab, 1 EACH PO Q4H Prescribed by: KENA SPIVEY on 03/01/18615 Hyoscyamine Sulfate 0.125 Mg Tab.subl, 1-2 TAB SL Q4H Prescribed by: KENA SPIVEY on 12/17/172341 Hyoscyamine Sulfate 0.125 Mg Tab.subl, 1-2 TAB SL Q4H Prescribed by: KENA SPIVEY on 03/01/18615 Ibuprofen 600 Mg Tablet, 600 MG PO Q6H PRN for PAIN Prescribed by: NAMITA LAMA on 07/25/162027 Ondansetron 4 Mg Tab.rapdis, 4 MG PO Q4H Prescribed by: KENA SPIVEY on 12/17/172341 Ondansetron 4 Mg Tab.rapdis, 4 MG PO Q4H Prescribed by: KENA SPIVEY on 03/01/18615 Pantoprazole Sodium 40 Mg Tablet.dr, 40 MG PO DAILY Prescribed by: KENA SPIVEY on 12/17/172341 Pantoprazole Sodium 40 Mg Tablet.dr, 40 MG PO DAILY Prescribed by: KENA SPIVEY on 03/01/18615 Sulfamethoxazole/Trimethoprim 1 Each Tablet, 1 EACH PO BID Prescribed by: JANET NUÑEZ on 10/03/16 1847 Patient Home Medication List Home Medication List Reviewed: Yes Review of Systems Review of Systems Constitutional: see HPI EENTM: see HPI Respiratory: see HPI, cough Cardiovascular: no symptoms reported Genitourinary: no symptoms reported Musculoskeletal: no symptoms reported Skin: no symptoms reported Psychiatric/Neurological: No Symptoms Reported Past Kcxjbsv-Krroat-Mnbruy Hx Patient Social History Alcohol Use: Denies Use Recreational Drug Use: No Smoking Status: Never a Smoker 2nd Hand Smoke Exposure: No Recent Foreign Travel: No Contact w/Someone Who Travel: No Recent Infectious Disease Expo: No Recent Hopitalizations: No Physical Abuse: No Sexual Abuse: No Mistreated: No Fear: No Immunizations Up To Date Tetanus Booster (TDap): Less than 5yrs PED Vaccines UTD: Yes Date of Influenza Vaccine: May 24, 2016 Seasonal Allergies Seasonal Allergies: No Past Medical History Surgeries: Yes Respiratory: No Cardiac: No Neurological: No Reproductive Disorders: No Female Reproductive Disorders: Ovarian Cyst Sexually Transmitted Disease: No HIV/AIDS: No Genitourinary: No Gastrointestinal: Yes Gall Bladder Disease Musculoskeletal: No Endocrine: Yes (GESTATAIONAL DIABETES) Diabetes, Non-Insulin dep HEENT: No Cancer: No Psychosocial: No Integumentary: No Blood Disorders: No Adverse Reaction/Blood Tranf: No Family Medical History Patient reports no known family medical history. Physical Exam Vital Signs Vital Signs - First Documented Capillary Refill : Less Than 3 Seconds Height, Weight, BMI Height: 4'10.00" Weight: 142lbs. 8.0oz. 64.894819vi; 28.00 BMI Method:Stated General Appearance: No Apparent Distress, WD/WN Eyes: Bilateral Eye Normal Inspection, Bilateral Eye PERRL, Bilateral Eye EOMI HEENT: PERRL/EOMI, TMs Normal, Normal ENT Inspection Neck: Full Range of Motion, Normal Inspection Respiratory: Normal Breath Sounds, No Accessory Muscle Use, No Respiratory Distress Cardiovascular: Regular Rate, Rhythm, Normal Peripheral Pulses Gastrointestinal: Normal Bowel Sounds, Non Tender, Soft Extremity: Normal Capillary Refill, Normal Inspection Neurologic/Psychiatric: Alert, Oriented x3 Skin: Normal Color, Warm/Dry Progress/Results/Core Measures Suspected Sepsis Recent Fever Within 48 Hours: No Infection Criteria Present: None New/Unexplained Altered Menta: No Sepsis Screen: No Definite Risk SIRS Temperature: Pulse: 101 Respiratory Rate: 22 Laboratory Tests 08/27/19 17:08: White Blood Count 12.5H Blood Pressure 126 /86 Mean: 99 Laboratory Tests 08/27/19 17:08: Creatinine 0.92, Platelet Count 228, Total Bilirubin 0.7 Results/Orders Lab Results Laboratory Tests Test 08/27/19 17:08 08/27/19 17:12 Range/Units White Blood Count 12.5 H 4.3-11.0 10^3/uL Red Blood Count 5.17 4.35-5.85 10^6/uL Hemoglobin 15.1 11.5-16.0 G/DL Hematocrit 45 35-52 % Mean Corpuscular Volume 87 80-99 FL Mean Corpuscular Hemoglobin 29 25-34 PG Mean Corpuscular Hemoglobin Concent 34 32-36 G/DL Red Cell Distribution Width 14.0 10.0-14.5 % Platelet Count 228 130-400 10^3/uL Mean Platelet Volume 10.8 H 7.4-10.4 FL Neutrophils (%) (Auto) 74 42-75 % Lymphocytes (%) (Auto) 18 12-44 % Monocytes (%) (Auto) 5 0-12 % Eosinophils (%) (Auto) 3 0-10 % Basophils (%) (Auto) 0 0-10 % Neutrophils # (Auto) 9.3 H 1.8-7.8 X 10^3 Lymphocytes # (Auto) 2.2 1.0-4.0 X 10^3 Monocytes # (Auto) 0.7 0.0-1.0 X 10^3 Eosinophils # (Auto) 0.4 H 0.0-0.3 10^3/uL Basophils # (Auto) 0.0 0.0-0.1 10^3/uL Sodium Level 141 135-145 MMOL/L Potassium Level 3.2 L 3.6-5.0 MMOL/L Chloride Level 104 98-107 MMOL/L Carbon Dioxide Level 25 21-32 MMOL/L Anion Gap 12 5-14 MMOL/L Blood Urea Nitrogen 7 7-18 MG/DL Creatinine 0.92 0.60-1.30 MG/DL Estimat Glomerular Filtration Rate > 60 BUN/Creatinine Ratio 8 Glucose Level 96 70-105 MG/DL Calcium Level 9.8 8.5-10.1 MG/DL Corrected Calcium 8.5-10.1 MG/DL Total Bilirubin 0.7 0.1-1.0 MG/DL Aspartate Amino Transf (AST/SGOT) 25 5-34 U/L Alanine Aminotransferase (ALT/SGPT) 31 0-55 U/L Alkaline Phosphatase 105 40-136 U/L Total Protein 8.6 H 6.4-8.2 GM/DL Albumin 4.8 H 3.2-4.5 GM/DL Urine Color YELLOW Urine Clarity SL CLOUDY Urine pH 6.0 5-9 Urine Specific [place] 1.020 1.016-1.022 Urine Protein TRACE NEGATIVE Urine Glucose (UA) NEGATIVE NEGATIVE Urine Ketones NEGATIVE NEGATIVE Urine Nitrite NEGATIVE NEGATIVE Urine Bilirubin NEGATIVE NEGATIVE Urine Urobilinogen 1.0 < = 1.0 MG/DL Urine Leukocyte Esterase 1+ H NEGATIVE Urine RBC (Auto) TRACE-I NEGATIVE Urine RBC 5-10 H /HPF Urine WBC 25-50 H /HPF Urine Squamous Epithelial Cells 10-25 H /HPF Urine Crystals NONE /LPF Urine Bacteria MODERATE H /HPF Urine Casts NONE /LPF Urine Mucus NEGATIVE /LPF Urine Culture Indicated YES Micro Results Microbiology 08/27/19 Influenza Types A,B Antigen (RICK) - Final, Complete My Orders Orders - JANET NUÑEZ STATISTICAL CLERK Cbc With Automated Diff (08/27/19 17:00) Comprehensive Metabolic Panel (08/27/19 17:00) Ua Culture If Indicated (08/27/19 17:00) Chest Pa/Lat (2 View) (08/27/19 17:00) Influenza A And B Antigens (08/27/19 17:00) Urine Bedside (08/27/19 17:00) Ed Iv/Invasive Line Start (08/27/19 17:00) Ns Iv 1000 Ml (Sodium Chloride 0.9%) (08/27/19 17:00) Ketorolac Injection (Toradol Injection) (08/27/19 17:00) Acetaminophen Tablet (Tylenol Tablet) (08/27/19 17:15) Urine Culture (08/27/19 17:12) Ct Abdomen/Pelvis W (08/27/19 17:46) Ceftriaxone For Iv Use (Rocephin For I (08/27/19 18:00) Iohexol Injection (Omnipaque 350 Mg/Ml 1 (08/27/19 18:00) Di Iv Start (Assessment) .IV start (08/27/19 17:57) Received Contrast (Hold Metformin- Contr (08/27/19 18:00) Sodium Chloride Flush (Catheter Flush Sy (08/27/19 18:00) Ns (Ivpb) (Sodium Chloride 0.9% Ivpb Bag (08/27/19 18:00) Medications Given in ED Current Medications Medications Dose Ordered Sig/Martin Route Start Time Stop Time Status Last Admin Dose Admin Acetaminophen 1,000 mg ONCE ONCE PO 08/27/19 17:15 08/27/19 17:16 DC 08/27/19 17:18 1,000 MG Ceftriaxone Sodium 1000 mg/ Sterile Water 10 ml @ 200 mls/hr ONCE ONCE IV 08/27/19 18:00 08/27/19 18:02 DC 08/27/19 17:57 200 MLS/HR Iohexol 100 ml ONCE ONCE IV 08/27/19 18:00 08/27/19 18:01 DC 08/27/19 18:13 80 ML Ketorolac Tromethamine 15 mg ONCE ONCE IVP 08/27/19 17:00 08/27/19 17:02 DC 08/27/19 17:08 15 MG Sodium Chloride 10 ml NEEDED PRN IV 08/27/19 18:00 08/27/19 18:13 10 ML Sodium Chloride 100 ml ONCE ONCE IV 08/27/19 18:00 08/27/19 18:01 DC 08/27/19 18:13 80 ML Vital Signs/I&O 08/27/19 08/27/19 08/27/19 16:49 16:49 17:18 Temp 37.1 37.1 Pulse 101 Resp 22 B/P (MAP) 126/86 (99) O2 Delivery Room Air Room Air Capillary Refill : Less Than 3 Seconds Blood Pressure Mean: 99 POS Diagnostic Imaging Diagonstic Imaging: CT Plain Films/CT/US/NM/MRI: abdomen Comments NAME: [facility] REC#: [id number] PT STATUS: REG ER : 1990 PHYSICIAN: JANET NUÑEZ APRN ADMIT DATE: 08/27/19/ER Signed POSDate of Exam:08/27/19 CT ABDOMEN/PELVIS W PROCEDURE: CT abdomen and pelvis with contrast. TECHNIQUE: Multiple contiguous axial images were obtained through the abdomen and pelvis after administration of intravenous contrast. Auto Exposure Controls were utilized during the CT exam to meet ALARA standards for radiation dose reduction. INDICATION: Cough, fever and dysuria. FINDINGS: Lung bases are clear. Liver appears normal. Gallbladder is surgically absent. Portal vein is patent. Common duct is not dilated. The pancreas appears normal. Spleen is not enlarged. Adrenals are normal. There is a small cortical perfusion defect in the right kidney measuring 13 mm in diameter that was not present on a prior CT dated 03/01/2018. This is most likely due to pyelonephritis. Small bowel is not dilated. The appendix is normal. Colon is unremarkable. Uterus is present. Adnexa appear normal. Urinary bladder is normal. There is no intraperitoneal free air or free fluid. IMPRESSION: Small area of diminished cortical perfusion in the right kidney most likely representing pyelonephritis. Dictated by: Dictated on workstation # [id number] Dict: 08/27/191823 Trans: 08/27/191850 [facility] [id number] Interpreted by: ZANDER VENTURA MD Electronically signed by: ZANDER VENTURA MD 08/27/191850 Departure Communication (Admissions) Using the [employer] language line [place] had a conversation with the patient. She still has some persistent pain in her back but no nausea. Fevers are gone. Chills are gone. We've done a dose of IV Rocephin here. She would prefer to go home. I'll give her some take home Zofran, take-home hydrocodone for pain and put her on Cipro twice daily for 7 days starting tomorrow. She understands this plan and is agreeable with this. She agrees to return to ER for any fevers, nausea or vomiting that prevents her from taking antibiotics or any sensation of worsening. Impression Primary Impression: Pyelonephritis Disposition: 01 HOME, SELF-CARE Condition: Stable Departure-Patient Inst. Decision time for Depature: 18:22 Referrals: NAMITA LAMA MD (PCP/Family) Primary Care Physician Patient Instructions: Kidney Infection (DC) Add. Discharge Instructions: 1. Tylenol and IV pump for pain control 2. Antibiotics as directed starting tomorrow 3. Return to ER for any fevers, severe nausea to keep you from taking the antibiotic or sensation of worsening. All discharge instructions reviewed with patient and/or family. Voiced understanding. Scripts Sulfamethoxazole/Trimethoprim (Bactrim Ds Tablet) 1 Each Tablet 1 EACH PO BID, #14 TAB Prov: JANET NUÑEZ APRN 08/27/19 Work/School Note: Work Release Form Date Seen in the Emergency Department: Aug 27, 2019 Return to Work: Aug 30, 2019 JANET NUÑEZ APRN Aug 27, 2019 17:09 POS
[2019-08-27 17:15] LABS: BASOPHILS % (AUTO) 0 % (0-10); EOSINOPHILS # (AUTO) 0.4 10^3/uL (0.0-0.3); EOSINOPHILS % (AUTO) 3 % (0-10); HEMATOCRIT 45 % (35-52); HEMOGLOBIN 15.1 G/DL (11.5-16.0); LYMPHOCYTES # (AUTO) 2.2 X 10^3 (1.0-4.0); LYMPHOCYTES % (AUTO) 18 % (12-44); MEAN CORPUSCULAR HEMOGLOBIN 29 PG (25-34); MEAN CORPUSCULAR HGB CONC 34 G/DL (32-36); MEAN CORPUSCULAR VOLUME 87 FL (80-99); MEAN PLATELET VOLUME 10.8 FL (7.4-10.4); MONOCYTES # (AUTO) 0.7 X 10^3 (0.0-1.0); MONOCYTES % (AUTO) 5 % (0-12); NEUTROPHILS # (AUTO) 9.3 X 10^3 (1.8-7.8); NEUTROPHILS % (AUTO) 74 % (42-75); PLATELET COUNT 228 10^3/uL (130-400); WHITE BLOOD COUNT 12.5 10^3/uL (4.3-11.0)
[2019-08-27] MEDS ORDERED: ACETAMINOPHEN 500 MG TAB (TYLENOL) PO ONE (17:15)
[2019-08-27 17:18] LABS: BILIRUBIN,URINE NEGATIVE (NEGATIVE); CLARITY,URINE SL CLOUDY; COLOR,URINE YELLOW; GLUCOSE, URINE (UA) NEGATIVE (NEGATIVE); KETONES,URINE NEGATIVE (NEGATIVE); LEUKOCYTE ESTERASE ,URINE 1+ (NEGATIVE); NITRITE,URINE NEGATIVE (NEGATIVE); PROTEIN,URINE TRACE (NEGATIVE)
[2019-08-27 17:30] LABS: BACTERIA,URINE MODERATE /HPF; WBC,URINE 25-50 /HPF
[2019-08-27 17:33] LABS: ALANINE AMINOTRANSFERASE 31 U/L (0-55); ALBUMIN 4.8 GM/DL (3.2-4.5); ALKALINE PHOSPHATASE 105 U/L (40-136); BILIRUBIN,TOTAL 0.7 MG/DL (0.1-1.0); BUN/CREATININE RATIO 8; CALCIUM 9.8 MG/DL (8.5-10.1); CARBON DIOXIDE 25 MMOL/L (21-32); CHLORIDE 104 MMOL/L (98-107); CREATININE SERUM 0.92 MG/DL (0.60-1.30); GFR ESTIMATED > 60; GLUCOSE 96 MG/DL (70-105); POTASSIUM 3.2 MMOL/L (3.6-5.0); SODIUM 141 MMOL/L (135-145); TOTAL PROTEIN 8.6 GM/DL (6.4-8.2)
--- NOTE | 2019-08-27 17:59 | Diagnostic Imaging Report ---
INDICATION: Cough and fever. AP and lateral chest. FINDINGS: Heart and mediastinum are normal. Lungs are clear. There are no effusions or pneumothoraces. IMPRESSION: Negative chest. Dictated by: Dictated on workstation # [id number]
[2019-08-27] MEDS ORDERED: HOLD METFORMIN - RECEIVED CONTRAST 20 ML VIAL IV SCH (18:00)
[2019-08-27] MEDS ORDERED: CATHETER FLUSH 10 ML SYR IV PRN (18:00)
[2019-08-27] MEDS ORDERED: cefTRIAXone FOR IV USE 1,000 MG in WATER (STERILE) FOR INJECTION 10 ML IV ONE (18:00)
[2019-08-27] MEDS ORDERED: NS 100 ML (IVPB) BAG IV ONE (18:00)
[2019-08-27] MEDS ORDERED: IOHEXOL 350 MG/ML 100 ML (OMNIPAQUE 350) VIAL IV ONE (18:00)
--- NOTE | 2019-08-27 18:33 | Diagnostic Imaging Report ---
PROCEDURE: CT abdomen and pelvis with contrast. TECHNIQUE: Multiple contiguous axial images were obtained through the abdomen and pelvis after administration of intravenous contrast. Auto Exposure Controls were utilized during the CT exam to meet ALARA standards for radiation dose reduction. INDICATION: Cough, fever and dysuria. FINDINGS: Lung bases are clear. Liver appears normal. Gallbladder is surgically absent. Portal vein is patent. Common duct is not dilated. The pancreas appears normal. Spleen is not enlarged. Adrenals are normal. There is a small cortical perfusion defect in the right kidney measuring 13 mm in diameter that was not present on a prior CT dated 03/01/2018. This is most likely due to pyelonephritis. Small bowel is not dilated. The appendix is normal. Colon is unremarkable. Uterus is present. Adnexa appear normal. Urinary bladder is normal. There is no intraperitoneal free air or free fluid. IMPRESSION: Small area of diminished cortical perfusion in the right kidney most likely representing pyelonephritis. Dictated by: Dictated on workstation # [id number]
[2019-08-27] MEDS ORDERED: RX-ONDANSETRON 4 MG ODT (ZOFRAN) PPK #4 PO STA (19:01)
[2019-08-27] MEDS ORDERED: SULF1TAB35 PO (19:04)
[2019-08-27] MEDS ORDERED: RX-HYDROCODONE/APAP 5/325 MG #4 TAB PK PO PRN (19:15)
[2019-08-27 19:16] VITALS: BP 104/60
== END 2019-08-27 19:16 | disposition home or self-care (01) ==
LOC: EDUNIT# 16:36 → ER 16:37
DX: N12 Tubulo-interstitial nephritis, not specified as acute or chronic (principal); E11.9 Type 2 diabetes mellitus without complications
CPT/HCPCS: 36415; 71046; 74177; 80053; 81000; 84703; 85025; 87077; 87088; 87186; 87804; 96361; 96374; 96375

== ENCOUNTER 2020-03-23 22:35 | Emergency (ER) | payer SELFPAY ==
[~2020-03-23] VITALS: Ht 157 cm; Wt 64.8 kg
[2020-03-23] MEDS ORDERED: LACTATED RINGERS 1,000 ML IV ONE (23:01)
--- NOTE | 2020-03-23 23:09 | ED General ---
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 TEMP WAS 99.8 FOR EMS C/O NON-PRODUCTIVE COUGH C/O SHORTNESS OF BREATH C/O SORE THROAT C/O BODY ACHES C/O GENERALIZED WEAKNESS C/O MID AND LOWER ABDOMINAL PAIN--PT STATES SHE IS 6 MONTHS . NO VAGINAL BLEEDING. PT IS UNABLE TO STATE HER LMP OR HER EDC. NO LAB DONE HERE AT HOSPITAL AND NO ULTRASOUND STUDIES DONE HERE FOR THIS . C/O DIFFUSE LOWER BACK PAIN NO URINARY SYMPTOMS IS ILL WITH SAME ---WAS TESTED AT HIS WORKPLACE ( [email or web address] IN [place] ) ON WEDNESDAY, BUT RESULTS ARE NOT KNOWN. PT DENIES ANY PAST MEDICAL PROBLEMS OR PROBLEMS WITH , BUT PT HAS HX OF GESTATIONAL DIABETES PER OLD RECORD PT STATES SHE IS NOT TAKING ANY MEDICATIONS AT THIS POINT PCP AND OB: DR. LAMA AT [facility] Allergies and Home Medications Allergies Coded Allergies: No Known Drug Allergies (Unverified , 10/05/15) Home Medications Hydrocodone Bit/Acetaminophen 1 Tab Tab, 1 EACH PO Q4H Prescribed by: KENA SPIVEY on 12/17/172341 Hydrocodone Bit/Acetaminophen 1 Tab Tab, 1 EACH PO Q4H Prescribed by: KENA SPIVEY on 03/01/18615 Hyoscyamine Sulfate 0.125 Mg Tab.subl, 1-2 TAB SL Q4H Prescribed by: KENA SPIVEY on 12/17/172341 Hyoscyamine Sulfate 0.125 Mg Tab.subl, 1-2 TAB SL Q4H Prescribed by: KENA SPIVEY on 03/01/18615 Ibuprofen 600 Mg Tablet, 600 MG PO Q6H PRN for PAIN Prescribed by: NAMITA LAMA on 07/25/162027 Ondansetron 4 Mg Tab.rapdis, 4 MG PO Q4H Prescribed by: KENA SPIVEY on 12/17/172341 Ondansetron 4 Mg Tab.rapdis, 4 MG PO Q4H Prescribed by: KENA SPIVEY on 03/01/18 06 Pantoprazole Sodium 40 Mg Tablet.dr, 40 MG PO DAILY Prescribed by: KEAN SPIVEY on 12/17/17 2342 Pantoprazole Sodium 40 Mg Tablet.dr, 40 MG PO DAILY Prescribed by: KENA SPIVEY on 03/01/18 0616 Sulfamethoxazole/Trimethoprim 1 Each Tablet, 1 EACH PO BID Prescribed by: JANET NUÑEZ on 10/03/16 1847 Sulfamethoxazole/Trimethoprim 1 Each Tablet, 1 EACH PO BID Prescribed by: JANET NUÑEZ on 08/27/19 1904 Patient Home Medication List Home Medication List Reviewed: Yes Review of Systems Review of Systems Constitutional: see HPI, fever, malaise, weakness EENTM: see HPI, throat pain Respiratory: see HPI, cough, short of breath Cardiovascular: no symptoms reported Gastrointestinal: see HPI, abdominal pain; No nausea, No vomiting Genitourinary: no symptoms reported () Musculoskeletal: see HPI (BODY ACHES) Skin: no symptoms reported Psychiatric/Neurological: No Symptoms Reported Hematologic/Lymphatic: No Symptoms Reported Immunological/Allergic: no symptoms reported Past Bbcrzsu-Eycxtc-Fthkuq Hx Past Med/Social Hx: Reviewed and Corrections made Patient Social History Alcohol Use: Denies Use Recreational Drug Use: No Smoking Status: Never a Smoker 2nd Hand Smoke Exposure: No Recent Hopitalizations: No Immunizations Up To Date Tetanus Booster (TDap): Less than 5yrs PED Vaccines UTD: Yes Date of Influenza Vaccine: May 24, 2016 Seasonal Allergies Seasonal Allergies: No Past Medical History Surgeries: Yes Gallbladder Respiratory: No Cardiac: No Neurological: No : Yes Hx : 4 Hx Para: 2 Hx Total # of Abortions (Sp): 1 Reproductive Disorders: No Female Reproductive Disorders: Ovarian Cyst Sexually Transmitted Disease: No HIV/AIDS: No Genitourinary: No Gastrointestinal: Yes (S/P CHOLECYSTECTOMY) Gall Bladder Disease Musculoskeletal: No Endocrine: Yes (GESTATAIONAL DIABETES) Diabetes, Non-Insulin dep HEENT: No Cancer: No Psychosocial: No Integumentary: No Blood Disorders: No Adverse Reaction/Blood Tranf: No Family Medical History Patient reports no known family medical history. Physical Exam Vital Signs Vital Signs - First Documented 03/23/20 22:45 Temp 36.9 Pulse 92 Resp 24 B/P (MAP) 113/81 (92) Pulse Ox 98 O2 Delivery Room Air Capillary Refill : Height, Weight, BMI Height: 4'10.00" Weight: 142lbs. 8.0oz. 64.158243pm; 28.00 BMI Method:Stated General Appearance: WD/WN, Other (MILDLY DYSPNIC, APPEARS MILDLY ILL. ) HEENT: PERRL/EOMI, TMs Normal, Normal ENT Inspection, Pharynx Normal, Other (CONJUNCTIVA INJECTED BILATERALLY) Neck: Full Range of Motion, Normal Inspection, Non Tender, Supple Respiratory: Normal Breath Sounds, No Accessory Muscle Use, No Respiratory Distress (MILDLY DYSPNEIC) Cardiovascular: Regular Rate, Rhythm, No Edema, No JVD, No Murmur, Normal Peripheral Pulses Gastrointestinal: Normal Bowel Sounds, No Organomegaly, No Pulsatile Mass, Soft, Tenderness (MODERATE, DIFFUSE MID AND LOWER ABDOMINAL TENDERNESS), Other (ABDOMEN IS SOFT, GRAVID UTERUS WITH FUNDUS JUST ABOVE UMBILICUS) Back: CVA Tenderness (L), CVA Tenderness (R), Other (MODERATE, DIFFUSE LOWER BACK TENDERNESS) Extremity: Normal Capillary Refill, Normal Inspection, Normal Range of Motion, Non Tender, No Calf Tenderness, No Pedal Edema Neurologic/Psychiatric: Alert, Oriented x3, No Motor/Sensory Deficits, computer applications engineer II- XII Norm as Tested Skin: Normal Color, Warm/Dry Focused Exam Lactate Level 03/23/20 23:49: Lactic Acid Level 1.22 Lactic Acid Level Progress/Results/Core Measures Suspected Sepsis SIRS Temperature: Pulse: Respiratory Rate: Laboratory Tests 03/23/20 23:03: White Blood Count 8.1 Blood Pressure / Mean: 03/23/20 23:49: Lactic Acid Level 1.22 Laboratory Tests 03/23/20 23:03: Creatinine 0.63, INR Comment 0.8, Platelet Count 251, Total Bilirubin 0.2 Results/Orders Lab Results Laboratory Tests Test 03/24/20 02:25 Range/Units Glucometer 123 H 70-110 MG/DL My Orders Orders - EKNA SPIVEY DO Accucheck Stat ONCE (03/24/20 02:19) Medications Given in ED Vital Signs/I&O Capillary Refill : Progress Note : Progress Note PT SEEN IN COVID UNIT. PPE WORN AT ALL TIMES COVID TESTING PERFORMED ACCUCHECK 203 GIVEN IV FLUIDS FHR 145 NO DETERIORATION IN PT'S CONDITION DURING ER STAY ECG Initial ECG Impression Date: Mar 23, 2020 Initial ECG Impression Time: 22:52 Initial ECG Rate: 98 Initial ECG Rhythm: Normal Sinus Initial ECG Comparisson: No Previous ECG Available Diagnostic Imaging Comments CXR--NO ACUTE PROCESS, PENDING RADIOLOGIST REVIEW Reviewed: Reviewed by Me Departure Communication (Admissions) 8--SPOKE WITH DR. YI, [employer] MANAGER FOR [facility] OB. HE ADVISES TO TRANSFER PT DUE TO SUSPECTED COVID WITH ABDOMINAL PAIN, WITH GESTATIONAL DIABETES-HIGH RISK FOR COMPLICATIONS. ALSO NO ULTRASOUND AVAILABLE HERE ALL WEEKEND 0015--CALLED [facility]. PAGING OB PHYSICIAN [employer] TALEO MANAGER. 0020--SPOKE WITH DR. OWENS, ACCEPTS PT FOR ADMIT. 0111--[facility] HAS CALLED BACK. DR. OWENS HAS NOW DEFERRED ADMIT TO DR. MON[place] R 0113--SPOKE WITH DR. SCHROEDER, HE REFUSES ADMIT/TRANSFER, DUE TO PT'S LMP AND EDC UNKNOWN. 0120--SPOKE WITH DR. YI. HE ADVISES TO CONTACT CORK PAINTER AND GRADER. 0125--SPOKE WITH CORK PAINTER AND GRADER. SHE WILL SPEAK WITH DR. YI 0129--CORK PAINTER AND GRADER CALLED BACK. SHE HAS DISCUSSED WITH DR. YI. UNABLE TO CARE FOR PT HERE DUE TO PT NOT ABLE TO GO TO [facility] AND DELIVERY UNIT. AND CANNOT GO TO FLOOR AND HAVE OB MONITORING. ADVISES TRANSFER TO . EMS NOTIFIED, THEY ARE NOW HERE PREVIOUSLY ARRANGED FOR TRANSPORT TO [facility]. 0130--CALLED . WILL CALL BACK. 0210--[facility] CALLED BACK. SPOKE WITH DR. RUTLEDGE WITH MEDICINE AND WITH DR. Alyssa SHETH WITH OB, PT HAS BEEN ACCEPTED TO DR. Alyssa SHETH'S SERVICE. WILL CALL BACK WITH BED ASSIGNMENT. 0215--EMS CONTACTED AGAIN, NOW FOR TRANSFER TO . 0300--DISCUSSED NEED FOR TRANSPORT WITH [facility] EMS CAPTAIN. Impression Primary Impression: COVID P.U.I. Additional Impressions: 6 MONTH GESTATION OF GESTATIONAL DIABETES Abdominal pain affecting Disposition: XFER SHT-TRM HOSP Condition: Stable Transfer Transfer Reason: Exceeds level of care Transfer Facility: [facility]. Method of Transfer: EMS Departure-Patient Inst. Referrals: NAMITA LAMA MD (PCP/Family) Primary Care Physician KENA SPIVEY DO Mar 23, 2020 23:09
[2020-03-23] MEDS ORDERED: NS IV 1000 ML 1,000 ML IV SCH (23:14)
[2020-03-23 23:22] LABS: BASOPHILS % (AUTO) 0 % (0-10); EOSINOPHILS # (AUTO) 0.2 10^3/uL (0.0-0.3); EOSINOPHILS % (AUTO) 2 % (0-10); HEMATOCRIT 32 % (35-52); LYMPHOCYTES # (AUTO) 2.1 X 10^3 (1.0-4.0); LYMPHOCYTES % (AUTO) 25 % (12-44); MEAN CORPUSCULAR HEMOGLOBIN 30 PG (25-34); MEAN CORPUSCULAR HGB CONC 34 G/DL (32-36); MEAN CORPUSCULAR VOLUME 86 FL (80-99); MEAN PLATELET VOLUME 10.2 FL (7.4-10.4); MONOCYTES # (AUTO) 0.5 X 10^3 (0.0-1.0); MONOCYTES % (AUTO) 6 % (0-12); NEUTROPHILS # (AUTO) 5.4 X 10^3 (1.8-7.8); NEUTROPHILS % (AUTO) 66 % (42-75); PLATELET COUNT 251 10^3/uL (130-400); RED CELL DISTRIBUTION WIDTH 13.8 % (10.0-14.5); WHITE BLOOD COUNT 8.1 10^3/uL (4.3-11.0)
[2020-03-23 23:46] LABS: ERYTHROCYTE SEDIMENTATION RATE 78 MM/HR (0-20)
[2020-03-23 23:49] LABS: ALBUMIN 3.2 GM/DL (3.2-4.5); CHLORIDE 107 MMOL/L (98-107); POTASSIUM 3.3 MMOL/L (3.6-5.0)
[2020-03-23 23:50] LABS: SODIUM 137 MMOL/L (135-145)
[2020-03-23 23:51] LABS: CALCIUM 8.1 MG/DL (8.5-10.1)
[2020-03-23 23:52] LABS: GLUCOSE 207 MG/DL (70-105); TOTAL PROTEIN 6.7 GM/DL (6.4-8.2)
[2020-03-23 23:53] LABS: CARBON DIOXIDE 19 MMOL/L (21-32)
[2020-03-23 23:54] LABS: BILIRUBIN,TOTAL 0.2 MG/DL (0.1-1.0)
[2020-03-23 23:55] LABS: ALKALINE PHOSPHATASE 136 U/L (40-136)
[2020-03-23 23:56] LABS: CREATININE SERUM 0.63 MG/DL (0.60-1.30); GFR ESTIMATED > 60
[2020-03-23 23:56] LABS: BILIRUBIN,URINE NEGATIVE (NEGATIVE); CLARITY,URINE CLEAR; COLOR,URINE YELLOW; GLUCOSE, URINE (UA) 2+ (NEGATIVE); KETONES,URINE NEGATIVE (NEGATIVE); LEUKOCYTE ESTERASE ,URINE NEGATIVE (NEGATIVE); NITRITE,URINE NEGATIVE (NEGATIVE); PH,URINE 6.5 (5-9); PROTEIN,URINE NEGATIVE (NEGATIVE)
[2020-03-23 23:57] LABS: BUN/CREATININE RATIO 6
[2020-03-23 23:58] LABS: ALANINE AMINOTRANSFERASE 16 U/L (0-55); MAGNESIUM 1.8 MG/DL (1.6-2.4)
[2020-03-24 00:05] LABS: BACTERIA,URINE TRACE /HPF
[2020-03-24] MEDS ORDERED: NS IV 1000 ML 1,000 ML IV SCH (00:06)
[2020-03-24 00:09] LABS: FIBRIN DEGRADATION PRODUCTS 1.95 UG/ML (0.00-0.49); INR 0.8 (0.8-1.4); PROTHROMBIN TIME PATIENT 11.9 SEC (12.2-14.7)
--- NOTE | 2020-03-24 00:09 | NUR ---
PROVIDER ON LANGUAGE LINE WITH PT.
--- NOTE | 2020-03-24 00:22 | NUR ---
PT TEMP 36.9 ORAL
[2020-03-24] MEDS ORDERED: ACETAMINOPHEN 500 MG TAB (TYLENOL) PO ONE (00:30)
--- NOTE | 2020-03-24 00:53 | NUR ---
[facility] dispatch called at this time for transport.
--- NOTE | 2020-03-24 01:44 | NUR ---
BP 106/68, PULSE 82, O2 97%, RESP 17, TEMP 36.8
--- NOTE | 2020-03-24 02:10 | NUR ---
PT AMBULATED TO BATHROOM WITHOUT DIFFICULTY.
--- NOTE | 2020-03-24 03:07 | NUR ---
Room assignment received from [facility]. [facility] dispatch notified of facility change and need for transport.
[2020-03-24 03:55] VITALS: BP 109/74
--- NOTE | 2020-03-24 05:49 | Diagnostic Imaging Report ---
Clinical indication: Patient with chest symptoms. Exam: Portable chest x-ray upright view. Comparisons: Chest x-ray dated 08/27/2019. Findings: Lungs/pleura: Lungs are clear. There is no pneumothorax. There is no pleural effusion. Mediastinum: Unremarkable. Pulmonary vasculature: Unremarkable. Heart: Unremarkable. Bones/extrathoracic soft tissue: Unremarkable. Impression: There is no radiographic evidence of acute cardiopulmonary process. Dictated by: Dictated on workstation # [id number]
== END 2020-03-24 03:55 | disposition short-term general hospital (02) ==
LOC: EDUNIT# 22:35 → ER 22:37
DX: O98.512 Other viral diseases complicating pregnancy, second trimester (principal); U07.1 COVID-19; O24.419 Gestational diabetes mellitus in pregnancy, unspecified control; O26.892 Other specified pregnancy related conditions, second trimester; Z3A.00 Weeks of gestation of pregnancy not specified
CPT/HCPCS: 71045; 80053; 81000; 82962 ×2; 83605; 83615; 83735; 83880; 84145; 84484; 85025; 85379; 85610; 85652; 85730; 86141; 86308; 87040; 87430; 93041; 99285; U0002; 36415; 87635; 93005

== ENCOUNTER 2020-04-15 14:46 | Outpatient (CLI) | payer SELFPAY ==
[~2020-04-15] VITALS: Ht 148 cm; Wt 67.9 kg
--- NOTE | 2020-04-15 14:35 | NUR ---
pt reports c/o lower abd pain, with walking, since Wednesday with worsening. denies vaginal bleeding or leaking fluid. Pt speaks no Albanian, director of digital technology @ side. Addendum: 04/15/20 at 1555 by SAUMYA DICKERSON RN correction to time of note- 1537
--- NOTE | 2020-04-15 14:55 | NUR ---
SHARI BEE presented to unit via ambulation from ED, accompanied by family, with c/o PELVIC PAIN since Wednesday. Pt. weighed, gowned, voided, and to bed. EFHM and TOCO applied, VS taken. Pt. oriented to bed controls, call light, TV, heat, and A/C controls.
[2020-04-15 15:35] VITALS: BP 107/61
[2020-04-15 15:43] VITALS: BP 107/61
[2020-04-15 16:08] LABS: BILIRUBIN,URINE NEGATIVE (NEGATIVE); CLARITY,URINE SL CLOUDY; COLOR,URINE YELLOW; GLUCOSE, URINE (UA) 1+ (NEGATIVE); KETONES,URINE NEGATIVE (NEGATIVE); LEUKOCYTE ESTERASE ,URINE NEGATIVE (NEGATIVE); NITRITE,URINE NEGATIVE (NEGATIVE); PH,URINE 6.5 (5-9); PROTEIN,URINE NEGATIVE (NEGATIVE)
[2020-04-15 16:46] LABS: SQUAMOUS EPITHELIAL CELL,UR 25-50 /HPF
[2020-04-15 16:47] LABS: AMORPHOUS SEDIMENT,UR RARE AMOR URATES /LPF; BACTERIA,URINE FEW /HPF
--- NOTE | 2020-04-15 16:54 | NUR ---
was called r/t pt's admission c/o. monitor tracing reviewed, UA specimen results given. dismissal order received and UA culture order received.
--- NOTE | 2020-04-15 17:07 | NUR ---
dismissal instructions given via emu farm worker. signature page signed, placed on chart. Addendum: 04/15/20 at 1840 by SAUMYA DICKERSON RN water given to pt and encouraged oral intake @ home. Tylenol ES prn as needed for pain. follow up with as scheduled or prn.
--- NOTE | 2020-04-15 17:10 | NUR ---
pt ambulated to private vehicle with family member @ side. pt stable with no sx's of distress noted.
--- NOTE | 2020-04-16 08:10 | Physician Query-Final Dx ---
ASHELY CRUZ 04/16/20 0810: Clinic Account Progress/Dx Physician Query: Please give diagnosis Please include # weeks gestation Date of Service Apr 15, 2020 at 14:46 YANET YI MD 04/16/20 1718: Clinic Account Progress/Dx DIAGNOSIS: Diagnosis 1. IUP 3rd trimester, non labor 2. Pelvic pain, NOS ASHELY CRUZ Apr 16, 2020 08:10 YANET YI MD Apr 16, 2020 17:18
== END 2020-04-15 17:10 | disposition home or self-care (01) ==
LOC: WSo 14:46
PROVIDERS: ATTEND Family Medicine
DX: O26.893 Other specified pregnancy related conditions, third trimester (principal); R10.2 Pelvic and perineal pain; Z3A.00 Weeks of gestation of pregnancy not specified
CPT/HCPCS: 81000; 87088; 99213

== ENCOUNTER → 2020-04-17 | Outpatient (CLI) | payer SELFPAY ==
[~2020-04-17] MED LIST changes: +CATHETER FLUSH 10 ML SYR IV PRN; +HOLD METFORMIN - RECEIVED CONTRAST 20 ML VIAL IV SCH; +IOHEXOL 350 MG/ML 100 ML (OMNIPAQUE 350) VIAL IV ONE; +NS 100 ML (IVPB) BAG IV ONE
--- NOTE | 2020-04-17 17:53 | Diagnostic Imaging Report ---
PROCEDURE: CT angiography Chest TECHNIQUE: After intravenous administration of contrast, thin section axial CT angiography of the chest was performed. 3D MIP reconstructions were made. All CT scans use one or more of the following dose optimizing techniques: automated exposure control, MA and/or KvP adjustment based on a patient size and exam type, or iterative reconstruction. INDICATION: Shortness of breath. Patient is in 3rd trimester. COMPARISON: CT abdomen pelvis from 08/27/2019. FINDINGS: Vasculature: No pulmonary emboli. The most distal aspects of the segmental basilar pulmonary arteries are excluded from the [id number]-ep-lndw on this exam to avoid radiation of the upper abdomen. No CT evidence of pulmonary hypertension or right ventricular strain. Thoracic aorta is normal in caliber. No aortic dissection or pseudoaneurysm. Heart and mediastinum: Visualized thyroid is normal. No supraclavicular, axillary, or intra-thoracic lymphadenopathy. The heart is normal in size without pericardial effusion. Pleura: No pleural effusion or pneumothorax. Lungs and airway: No endoluminal lesion in the trachea or central bronchi. No pulmonary mass, nodule or consolidation. Please note that the posterior lung base are excluded from the respz-go-aviw. Upper abdomen: Allowing for the phase of contrast, no acute abnormality in the upper abdomen is seen. Musculoskeletal: No concerning osseous lesion. IMPRESSION: 1. No acute cardiopulmonary process. Specifically, no pulmonary emboli or acute aortic syndrome. Dictated by: Dictated on workstation # [id number]
== END ==
LOC: RAD 17:06
PROVIDERS: ATTEND Family Medicine
DX: O99.513 Diseases of the respiratory system complicating pregnancy, third trimester (principal); R06.02 Shortness of breath; Z86.19 Personal history of other infectious and parasitic diseases
CPT/HCPCS: 71275

== ENCOUNTER 2020-04-23 22:27 | Outpatient (CLI) | payer SELFPAY ==
[~2020-04-23] VITALS: Ht 145 cm; Wt 69.2 kg
[~2020-04-23 22:27] MED LIST changes: -CATHETER FLUSH 10 ML SYR IV PRN; -HOLD METFORMIN - RECEIVED CONTRAST 20 ML VIAL IV SCH; -IOHEXOL 350 MG/ML 100 ML (OMNIPAQUE 350) VIAL IV ONE; -NS 100 ML (IVPB) BAG IV ONE
--- NOTE | 2020-04-23 22:32 | NUR ---
SHARI BEE presented to unit via ambulation from home/ED, accompanied by SO, with c/o PAIN. SHARI BEE weighed, gowned, voided, and to bed. EFHM and TOCO applied, VS taken. SHARI BEE oriented to bed controls, call light, TV, heat, and A/C controls.
[2020-04-23 22:40] VITALS: BP 138/73
--- NOTE | 2020-04-23 22:40 | NUR ---
Pt in bed and external monitors to pt. language line used, pt speaks no maori. Pt states having lower abdominal pain that radiates to lower back since 1830 today, pt states pain comes and goes. Pt denies vaginal bleeding or leaking. Pt has had intercoarse yesterday. pt states having burning with urination. UA sent to lab. Pt states only feeling lower abdominal tightening twice this evening, otherwise feels cramping. Amnio swab negative. SVE done. 1cm/thick/-2. Discussed plan of care with pt and s.o. Will monitor and wait for UA results. Will notify with assessment and plan.
[2020-04-23 22:54] VITALS: BP 138/73
[2020-04-23 22:55] LABS: BILIRUBIN,URINE NEGATIVE (NEGATIVE); CLARITY,URINE CLEAR; COLOR,URINE YELLOW; GLUCOSE, URINE (UA) NEGATIVE (NEGATIVE); KETONES,URINE NEGATIVE (NEGATIVE); LEUKOCYTE ESTERASE ,URINE TRACE (NEGATIVE); NITRITE,URINE NEGATIVE (NEGATIVE); PH,URINE 5.5 (5-9); PROTEIN,URINE NEGATIVE (NEGATIVE)
[2020-04-23 23:08] LABS: BACTERIA,URINE TRACE /HPF; WBC,URINE 0-2 /HPF
[2020-04-23 23:09] LABS: AMORPHOUS SEDIMENT,UR RARE AMOR URATES /LPF
--- NOTE | 2020-04-23 23:23 | NUR ---
Dr. plunkett updated at this time.
[2020-04-23] MEDS ORDERED: hydrOXYzine (VISTARIL/ATARAX) 25 MG capsule/tablet ONE (23:27)
[2020-04-23] MEDS ORDERED: ACETAMINOPHEN 500 MG TAB (TYLENOL) ONE (23:27)
[2020-04-23 23:34] VITALS: BP 138/73
[2020-04-23] MEDS ORDERED: hydrOXYzine (VISTARIL/ATARAX) 25 MG capsule/tablet PO ONE (23:45)
[2020-04-23] MEDS ORDERED: ACETAMINOPHEN 500 MG TAB (TYLENOL) PO PRN (23:45)
[2020-04-24 00:10] VITALS: BP 138/73
--- NOTE | 2020-04-24 00:20 | NUR ---
discharge instructions read and reviewed with pt. Pt ambulated off unit.
--- NOTE | 2020-04-24 08:09 | Physician Query-Final Dx ---
ASHELY CRUZ 04/24/20 0809: Clinic Account Progress/Dx Physician Query: Please give diagnosis Please include # weeks gestation Date of Service Apr 23, 2020 at 22:27 NAMITA LAMA MD 04/24/20 0817: Clinic Account Progress/Dx DIAGNOSIS: Diagnosis 34 weeks gestation Pelvic pain in third trimester ASHELY CRUZ Apr 24, 2020 08:09 NAMITA LAMA MD Apr 24, 2020 08:17
== END 2020-04-24 00:20 | disposition home or self-care (01) ==
LOC: WSo 22:27 → LDRP 22:28 → WSo 04-24 00:20
PROVIDERS: ATTEND Family Medicine
DX: O26.893 Other specified pregnancy related conditions, third trimester (principal); R10.2 Pelvic and perineal pain; Z3A.34 34 weeks gestation of pregnancy
CPT/HCPCS: 81000; G0463; 99213

== ENCOUNTER 2022-10-17 02:27 | Inpatient (IN) | payer MEDICAID, OTHER ==
[~2022-10-17] VITALS: Ht 149 cm; Wt 70.0 kg
[2022-10-17] VITALS (36 sets, daily range): BP systolic 103–138; BP diastolic 55–89
[~2022-10-17 02:27] MED LIST changes: +CLIN-144 PO; -CLIN300C11 PO; +GLBR2.5T PO; -GLYB2.5T4 PO; +IBUP-844 PO; +METF-399 PO; -SULF1TAB35 PO; +SULF1TAB38 PO
[2022-10-17] MEDS ORDERED: LACTATED RINGERS 1,000 ML IV SCH (02:40)
[2022-10-17] MEDS ORDERED: TERBUTALINE INJ 1 MG/ML (BRETHINE) AMP SC ONE ×2 (02:40→04:45)
[2022-10-17] MEDS ORDERED: LACTATED RINGERS 1,000 ML IV ONE ×2 (02:51→04:25)
[2022-10-17] MEDS ORDERED: TERBUTALINE INJ 1 MG/ML (BRETHINE) AMP ONE (02:52)
[2022-10-17 04:21] LABS: BILIRUBIN,URINE NEGATIVE (NEGATIVE); CLARITY,URINE CLEAR; COLOR,URINE YELLOW; GLUCOSE, URINE (UA) NEGATIVE (NEGATIVE); KETONES,URINE 1+ (NEGATIVE); LEUKOCYTE ESTERASE ,URINE NEGATIVE (NEGATIVE); NITRITE,URINE NEGATIVE (NEGATIVE); PROTEIN,URINE TRACE (NEGATIVE)
[2022-10-17 04:26] LABS: BACTERIA,URINE FEW /HPF; WBC,URINE 0-2 /HPF
[2022-10-17] MEDS ORDERED: AMPICILLIN FOR IV USE 2,000 MG in NS (IVPB) 50 ML IV SCH (04:44)
[2022-10-17] MEDS ORDERED: WATER (STERILE) FOR INJECTION 20 ML ONE (04:49)
[2022-10-17] MEDS ORDERED: AMPICILLIN 2,000 MG/14.8 ML (IV USE) ONE (04:49)
[2022-10-17] MEDS: LACTATED RINGERS 1,000 ML IV SCH ×2 (05:06→12:38)
[2022-10-17] MEDS: AMPICILLIN FOR IV USE 1,000 MG in NS (IVPB) 50 ML IV SCH ×3 (08:45→16:45)
[2022-10-17] MEDS ORDERED: metFORMIN 500 MG (GLUCOPHAGE) TAB PO SCH (10:00)
[2022-10-17 10:22] LABS: BASOPHILS # (AUTO) 0.1 10^3/uL (0.0-0.1); BASOPHILS % (AUTO) 0 % (0-10); EOSINOPHILS # (AUTO) 0.3 10^3/uL (0.0-0.3); EOSINOPHILS % (AUTO) 2 % (0-10); HEMATOCRIT 40 % (35-52); HEMOGLOBIN 13.3 g/dL (11.5-16.0); LYMPHOCYTES # (AUTO) 3.2 10^3/uL (1.0-4.0); LYMPHOCYTES % (AUTO) 24 % (12-44); MEAN CORPUSCULAR HEMOGLOBIN 29 pg (25-34); MEAN CORPUSCULAR HGB CONC 33 g/dL (32-36); MEAN CORPUSCULAR VOLUME 88 fL (80-99); MEAN PLATELET VOLUME 11.6 fL (9.0-12.2); MONOCYTES # (AUTO) 0.8 10^3/uL (0.0-1.0); MONOCYTES % (AUTO) 6 % (0-12); NEUTROPHILS # (AUTO) 8.8 10^3/uL (1.8-7.8); NEUTROPHILS % (AUTO) 66 % (42-75); PLATELET COUNT 258 10^3/uL (130-400); WHITE BLOOD COUNT 13.3 10^3/uL (4.3-11.0)
--- NOTE | 2022-10-17 10:24 | History & Physical-OB ---
OB - Chief Complaint & HPI Date/Time Date of Admission: Date of Admission: Oct 17, 2022 at 04:44 Date seen by a Provider: Oct 17, 2022 Time Seen by a Provider: 10:19 Chief Complaint/History OB-Reason for Admission/Chief: Onset of Labor Hx : 5 Hx Para: 4 Expected Date of Delivery: Nov 20, 2022 Gestational Age in Weeks: 35 Gestational Age in Days: 5 Other reason for admission: contractions. She is feeling baby move. Denies any gush of fluid or vaginal bleeding. History of Labs O+, Ab neg, Rub Imm HIV/RPR/HepB/C NR Abnormal GTT GBS unknown Allergies and Home Medications Allergies Coded Allergies: No Known Drug Allergies (Unverified , 04/23/20) Patient Home Medication List Home Medication List Reviewed: Yes Pnv with Ca,No.72/Iron/FA (Pnv Plus Multivit Tab) 1 Each Tablet, 1 EA PO DAILY@0700 Prescribed by: NAMITA LAMA on 05/24/20 0745 Last Action: Reviewed Discontinued Medications Ibuprofen (Ibu) 600 Mg Tablet, 600 MG PO Q6HR PRN for PAIN-MODERATE (5-7) Discontinued Reason: No Longer Taking Prescribed by: NAMITA LAMA on 05/24/2045 Last Action: Discontinued OB - History Hx of Present Care: Yes Ultrasounds: Normal mid trimester US Obstetrical Complications: Gestational Diabetes (Recently started on medications last week) Medical Complications: None Obstetrical History Hx : 5 Hx Para: 4 Hx # Term Pregnancies: 4 Number of Living Children: 3 Hx Termination: No Hx Total # of Abortions (Spona: 0 Hx Multiple Gestation: No Hx Stillbirth: No Hx Complication: No Hx Induced Hypertens: No Hx Maternal Gestational Diabet: Yes Delivery History Hx Dystocia: No Hx Large For Gestational Age I: No Hx Small for Gestational Age I: No Hx Section: No Hx Vaginal Delivery Post C-Sec: No Hx Blood Disorders: No Adverse Rxn to Tranfusion: No Patient Past Medical History PMHx: Prediabetes Social History/Family History Alcohol Use: Denies Use Smoking Cessation: Never smoker 2nd Hand Smoke Exposure: No Immunizations Influenza Vaccine Up-to-Date: Yes; Up-to-Date Hepatitis A: Yes Hepatitis B: Yes Tetanus Booster (TDap): Less than 5yrs Rubella: immune RPR/VDRL: Negative GBS Status: Unknown HBsAG: Negative OB - Admission Exam Physical Exam Vitals: Vital Signs 10/17/22 10/17/22 10/17/22 03:55 08:40 09:10 Temp 36.5 Pulse 104 Resp 61 B/P (MAP) 114/55 (74) Pulse Ox 99 O2 Delivery Room Air HEENT: NCAT Heart: Rhythm Normal Lungs: Clear Abdomen: Gravid Cervical Dilatation: 5cm Effacement: 100% Station: -1 Membranes: Intact Heart Rate: 140's Accelerations: Accelerations Present Decelerations: No Decelerations Contractions on Admission: >10 Minutes Apart Intensity: Mild Labs Laboratory Tests Test 10/17/22 02:30 10/17/22 03:05 10/17/22 09:28 Range/Units Urine Color YELLOW Urine Clarity CLEAR Urine pH 6.0 5-9 Urine Specific [place] 1.025 H 1.016-1.022 Urine Protein TRACE H NEGATIVE Urine Glucose (UA) NEGATIVE NEGATIVE Urine Ketones 1+ H NEGATIVE Urine Nitrite NEGATIVE NEGATIVE Urine Bilirubin NEGATIVE NEGATIVE Urine Urobilinogen 1.0 < = 1.0 MG/DL Urine Leukocyte Esterase NEGATIVE NEGATIVE Urine RBC (Auto) NEGATIVE NEGATIVE Urine RBC NONE /HPF Urine WBC 0-2 /HPF Urine Squamous Epithelial Cells 10-25 H /HPF Urine Crystals NONE /LPF Urine Bacteria FEW H /HPF Urine Casts NONE /LPF Urine Mucus SMALL H /LPF Urine Culture Indicated YES Glucometer 124 H 70-110 MG/DL OB - Assessment/Plan/Diagnosis Assessment Assessment: labor Admission Dx Labor Third trimester 35 week gestation GDM: uncontrolled Admission Status: Observation Plan Other Plan 31 yo @ 35.5 wga here for contractions and labor Plan - Terb x 2 doses given, ctxs responded and spaced out - IVFs started - Advanced dilation, GBS PXX started due to unknown GBS in patient - GDM: ADA diet, Blood sugars fasting and 2hr post - Will continue to monitor due to advanced dilation plan for US on Wednesday Copy Copies To 1: NAMITA LAMA MD, HOLLY R MD Oct 17, 2022 10:24
[2022-10-17] MEDS ORDERED: fentaNYL INJ 100 MCG/2 ML AMP ONE (14:56)
[2022-10-17] MEDS ORDERED: fentaNYL INJ 100 MCG/2 ML AMP IVP NR (15:00)
[2022-10-17] MEDS ORDERED: LIDOCAINE 1% INJ 20 ML VIAL INJ PRN (16:30)
[2022-10-17] MEDS ORDERED: OXYTOCIN PRE-MIX DRIP 500 ML IV ONE ×2 (16:31→17:44)
[2022-10-17] MEDS ORDERED: LIDOCAINE 1% INJ 20 ML VIAL ONE (16:32)
[2022-10-17] MEDS: OXYTOCIN PRE-MIX DRIP 500 ML IV SCH ×2 (17:10→17:46)
[2022-10-17] MEDS ORDERED: WITCH HAZEL(TUCKS) 40 EA JAR TOP PRN (17:30)
[2022-10-17] MEDS ORDERED: BENZOCAINE/MENTHOL (DERMOPLAST) 56 ML CAN TP PRN (17:30)
--- NOTE | 2022-10-17 17:34 | OB Labor & Delivery Record ---
Vag Delivery Note Vag Delivery Note Date of Delivery: 10/17/22 Preoperative Diagnosis: Marlene Govea is a (31 /Para 5 / 4, Gestational Age (wks)35.5 wga here in labor Postoperative Diagnosis: Same Surgeon: BELINDA CALVO MD Elevator Operator: None Anesthesia: Natural Delivery Type: @ 1708 Findings: Viable male infant, apgars 9/9, weight 6#2, 2790 grams Lacerations: None Intact placenta with 3 vessel cord. No nuchal cord, body cord or shoulder dystocia Estimated Blood Loss: 100 ml Complications: None Condition: Stable Description of Procedure: The patient is a 31 year old female who presented in active labor. She was admitted and informed consent was obtained. Her labor course was remarkable for contractions and labor. She progressed to complete dilatation and began to push. She was then set up for delivery. The infant's head was delivered atraumatically in the NGA position. The shoulders and remainder of the 's body were then delivered without difficulty. Upon delivery, the head was held below the level of the perineum and the mouth and nares were bulb suctioned. The cord was doubly clamped and cut by FOB after 2 min delay and the infant was handed off to the pediatric staff. An intact placenta with 3-vessel cord delivered via Amanda and there was found to be minimal bleeding.~ Vigorous fundal massage was performed and the fundus was found to be firm. IV oxytocin was given. Examination of the vagina and perineum revealed no lacerations that required repair. Following the repair, sponge, instrument and needle counts were correct. Mom and baby were both in stable condition in the labor suite. Vitals - Labs Vital Signs - I&O Vital Signs Date Time Temp Pulse Resp B/P (MAP) Pulse Ox O2 Delivery O2 Flow Rate FiO2 10/17/22 15:55 92 18 123/76 (92) 99 Room Air 10/17/22 15:40 83 18 126/85 (99) 99 Room Air 10/17/22 15:25 81 18 126/77 (93) 98 Room Air 10/17/22 14:40 36.6 77 18 138/80 (99) Room Air 10/17/22 14:10 91 18 119/75 (90) Room Air 10/17/22 13:40 93 18 120/81 (94) Room Air 10/17/22 13:10 106 18 108/76 (87) Room Air 10/17/22 12:40 88 18 115/75 (88) Room Air 10/17/22 12:10 36.6 78 18 121/75 (90) Room Air 10/17/22 11:10 85 18 112/71 (85) Room Air 10/17/22 10:40 87 18 119/61 (80) Room Air 10/17/22 10:15 90 18 128/89 (102) Room Air 10/17/22 09:10 104 18 114/55 (74) Room Air 10/17/22 08:40 36.5 10/17/22 08:10 111 18 108/67 (81) Room Air 10/17/22 07:40 96 18 106/66 (79) Room Air 10/17/22 07:10 104 18 115/63 (80) Room Air 10/17/22 06:40 104 61 115/63 (80) Room Air 10/17/22 06:10 94 61 103/64 (77) Room Air 10/17/22 05:35 118 18 103/64 (77) Room Air 10/17/22 05:15 126 18 125/67 (86) Room Air 10/17/22 04:55 107 18 111/74 (86) Room Air 10/17/22 04:35 93 18 110/61 (77) Room Air 10/17/22 04:15 113 18 107/64 (78) Room Air 10/17/22 03:55 112 18 111/60 (77) 99 Room Air 10/17/22 03:35 102 18 111/68 (82) 98 Room Air 10/17/22 03:15 36.8 89 18 118/76 (90) 98 Room Air 10/17/22 03:05 36.6 89 18 118/76 98 Room Air Labs Laboratory Tests 10/17/22 02:30: Urine Color YELLOW, Urine Clarity CLEAR, Urine pH 6.0, Urine Specific [place] 1.025H, Urine Protein TRACEH, Urine Glucose (UA) NEGATIVE, Urine Ketones 1+H, Urine Nitrite NEGATIVE, Urine Bilirubin NEGATIVE, Urine Urobilinogen 1.0, Urine Leukocyte Esterase NEGATIVE, Urine RBC (Auto) NEGATIVE, Urine RBC NONE, Urine WBC 0-2, Urine Squamous Epithelial Cells 10-25H, Urine Crystals NONE, Urine Bacteria FEWH, Urine Casts NONE, Urine Mucus SMALLH, Urine Culture Indicated YES 10/17/22 03:05: White Blood Count 13.3H, Red Blood Count 4.54, Hemoglobin 13.3, Hematocrit 40, Mean Corpuscular Volume 88, Mean Corpuscular Hemoglobin 29, Mean Corpuscular H emoglobin Concent 33, Red Cell Distribution Width 14.2, Platelet Count 258, Mean Platelet Volume 11.6, Immature Granulocyte % (Auto) 1, Neutrophils (%) (Auto) 66, Lymphocytes (%) (Auto) 24, Monocytes (%) (Auto) 6, Eosinophils (%) (Auto) 2, Basophils (%) (Auto) 0, Neutrophils # (Auto) 8.8H, Lymphocytes # (Auto) 3.2, Monocytes # (Auto) 0.8, Eosinophils # (Auto) 0.3, Basophils # (Auto) 0.1, Immature Granulocyte # (Auto) 0.1 10/17/22 09:28: Glucometer 124H 10/17/22 12:21: Glucometer 102 BELINDA CALVO MD Oct 17, 2022 17:34
[2022-10-17] MEDS ORDERED: ACETAMINOPHEN 500 MG TAB (TYLENOL) ONE (18:07)
[2022-10-17] MEDS ORDERED: IBUPROFEN 600 MG (MOTRIN) TAB PO ONE (18:07)
[2022-10-17] MEDS: ACETAMINOPHEN 500 MG TAB (TYLENOL) PO SCH ×2 (18:08→23:30)
[2022-10-17] MEDS: IBUPROFEN 600 MG (MOTRIN) TAB PO SCH ×2 (18:08→23:30)
[2022-10-17] MEDS: DOCUSATE SODIUM 100 MG (COLACE) CAP PO SCH (21:00)
[2022-10-17] MEDS ORDERED: CATHETER FLUSH 10 ML SYR IV SCH (22:00)
[2022-10-18 04:15] VITALS: BP 108/59
[2022-10-18] MEDS: PRENATAL VITAMIN 1 EA TAB PO SCH (05:59)
[2022-10-18] MEDS: IBUPROFEN 600 MG (MOTRIN) TAB PO SCH ×3 (06:00→20:02)
[2022-10-18] MEDS: ACETAMINOPHEN 500 MG TAB (TYLENOL) PO SCH ×3 (06:00→20:02)
[2022-10-18 06:11] LABS: BASOPHILS # (AUTO) 0.1 10^3/uL (0.0-0.1); BASOPHILS % (AUTO) 1 % (0-10); EOSINOPHILS # (AUTO) 0.3 10^3/uL (0.0-0.3); EOSINOPHILS % (AUTO) 3 % (0-10); HEMATOCRIT 35 % (35-52); HEMOGLOBIN 11.7 g/dL (11.5-16.0); LYMPHOCYTES # (AUTO) 2.7 10^3/uL (1.0-4.0); LYMPHOCYTES % (AUTO) 26 % (12-44); MEAN CORPUSCULAR HEMOGLOBIN 29 pg (25-34); MEAN CORPUSCULAR HGB CONC 34 g/dL (32-36); MEAN CORPUSCULAR VOLUME 86 fL (80-99); MEAN PLATELET VOLUME 11.3 fL (9.0-12.2); MONOCYTES # (AUTO) 0.7 10^3/uL (0.0-1.0); MONOCYTES % (AUTO) 7 % (0-12); NEUTROPHILS # (AUTO) 6.5 10^3/uL (1.8-7.8); NEUTROPHILS % (AUTO) 63 % (42-75); PLATELET COUNT 219 10^3/uL (130-400); WHITE BLOOD COUNT 10.4 10^3/uL (4.3-11.0)
[2022-10-18 09:20] VITALS: BP 110/67
[2022-10-18] MEDS: DOCUSATE SODIUM 100 MG (COLACE) CAP PO SCH ×2 (09:24→20:02)
--- NOTE | 2022-10-18 11:55 | Postpartum Progress Note ---
LORRAINE FALL 10/18/22 1155: Note Note Day # [1] Subjective: Patient is a 31 y/o s/p at GA 35.5, PPD1. Patient denies complaints or concerns. Ambulating, voiding. Tolerating a regular diet without nausea or vomiting. Normal lochia. Pain is well controlled with oral pain medications. Patient is formula feeding with no concerns. Patient states she is feeling ready to go home. Discussed having the patient and baby stay one more night due to delivery. Patient is agreeable to plan. Objective: Patient is resting in bed at time of encounter with baby. Physical Exam: General - Alert and oriented, no apparent distress Abdomen - Soft, appropriately tender to palpation, non-distended, fundus firm at 2cm inferior to umbilicus Extremities - no edema bilaterally Assessment: 31 y/o post- day # [1], status post [spontaneous] vaginal delivery at GA of 35.5. Recovering well, hemodynamically stable. Hgb 11.7 on 10/18. Plan: Routine care. Continue formula feeding. Encourage ambulation. Ferrous sulfate supplementation if Hgb declines to <10 Monitor blood glucose, PMHx of gestational diabetes. Plan for discharge tomorrow, 10/19/2022. Vitals - Labs Vital Signs - I&O Vital Signs Date Time Temp Pulse Resp B/P (MAP) Pulse Ox O2 Delivery O2 Flow Rate FiO2 10/18/22 04:15 36.3 71 16 108/59 (75) 98 Room Air 10/17/22 20:50 36.5 76 16 108/58 (75) 97 Room Air 10/17/22 18:43 36.6 87 18 132/60 (84) 10/17/22 18:13 77 18 131/72 (91) 10/17/22 17:58 81 18 125/72 (89) 10/17/22 17:43 78 18 126/73 (90) 10/17/22 17:28 86 18 122/72 (89) 10/17/22 17:13 37.2 80 18 110/66 (81) 10/17/22 17:00 90 18 131/75 (93) 10/17/22 16:45 94 18 131/86 (101) 10/17/22 15:55 92 18 123/76 (92) 99 Room Air 10/17/22 15:40 83 18 126/85 (99) 99 Room Air 10/17/22 15:25 81 18 126/77 (93) 98 Room Air 10/17/22 14:40 36.6 77 18 138/80 (99) Room Air 10/17/22 14:10 91 18 119/75 (90) Room Air 10/17/22 13:40 93 18 120/81 (94) Room Air 10/17/22 13:10 106 18 108/76 (87) Room Air 10/17/22 12:40 88 18 115/75 (88) Room Air 10/17/22 12:10 36.6 78 18 121/75 (90) Room Air I & O 10/18/22 07:00 Intake Total 2164.8 ml Balance 2164.8 ml Labs Laboratory Tests 10/17/22 12:21: Glucometer 102 10/18/22 05:48: White Blood Count 10.4, Red Blood Count 4.05, Hemoglobin 11.7, Hematocrit 35, Mean Corpuscular Volume 86, Mean Corpuscular Hemoglobin 29, Mean Corpuscular Hemoglobin Concent 34, Red Cell Distribution Width 13.9, Platelet Count 219, Mean Platelet Volume 11.3, Immature Granulocyte % (Auto) 1, Neutrophils (%) (Auto) 63, Lymphocytes (%) (Auto) 26, Monocytes (%) (Auto) 7, Eosinophils (%) (Auto) 3, Basophils (%) (Auto) 1, Neutrophils # (Auto) 6.5, Lymphocytes # (Auto) 2.7, Monocytes # (Auto) 0.7, Eosinophils # (Auto) 0.3, Basophils # (Auto) 0.1, Immature Granulocyte # (Auto) 0.1 BELINDA CARROLL MD 10/18/22 1305: Note Note Verification and Attestation of Medical Student E/M Service A medical student performed and documented this service in my presence. I reviewed and verified all information documented by the medical student and made modifications to such information, when appropriate. I personally performed the physical exam and medical decision making. Belinda Carroll, Oct 18, 2022,13:05 [place] FALL Oct 18, 2022 11:55 BELINDA CARROLL MD Oct 18, 2022 13:05
[2022-10-18 16:25] VITALS: BP 106/64
[2022-10-18 20:02] VITALS: BP 117/80
[2022-10-19 03:47] VITALS: BP 105/62
[2022-10-19] MEDS: IBUPROFEN 600 MG (MOTRIN) TAB PO SCH ×2 (03:52→10:27)
[2022-10-19] MEDS: DOCUSATE SODIUM 100 MG (COLACE) CAP PO SCH (08:56)
[2022-10-19] MEDS: PRENATAL VITAMIN 1 EA TAB PO SCH (08:56)
[2022-10-19] MEDS: ACETAMINOPHEN 500 MG TAB (TYLENOL) PO SCH (08:57)
[2022-10-19 09:00] VITALS: BP 120/65
--- NOTE | 2022-10-19 09:43 | Discharge Summary ---
Diagnosis/Chief Complaint Date of Admission Oct 17, 2022 at 16:33 Date of Discharge 10/19/22 Admission Diagnosis Admission Diagnosis Third trimester 35 weeks Gestation GDM Discharge Summary-Simple/Stand Discharge Physical Examination Allergies: Coded Allergies: No Known Drug Allergies (Unverified , 04/23/20) Vitals & I&Os Vital Sign - Last 12Hours Date Time Temp Pulse Resp B/P (MAP) Pulse Ox O2 Delivery O2 Flow Rate FiO2 10/19/22 09:00 36.5 73 18 120/65 (83) 97 Room Air Hospital Course See final discharge diagnosis. Discharge Instructions to patient/family Please see electronic discharge instructions given to patient. Discharge Medications Reviewed and agree with Discharge Medication list on patient's Discharge Instruction sheet BELINDA CALVO MD Oct 19, 2022 09:43
[2022-10-19] MEDS ORDERED: IBUP-844 PO (09:44)
[2022-10-19] MEDS ORDERED: DOCU100C37 PO (09:44)
--- NOTE | 2022-10-19 09:46 | Discharge Summary ---
Discharge Inst-[facility] Reconcile Patient Problems Problems Reviewed?: Yes Depart Medications New, Converted or Re-Newed RX: Transmitted to Pharmacy New Medications: Docusate Sodium (Docusate Sodium) 100 Mg Capsule 100 MG PO BID, #28 CAP Ibuprofen (Ibu) 600 Mg Tablet 600 MG PO Q6H, #30 TAB Continued Medications: Pnv with Ca,No.72/Iron/FA (Pnv Plus Multivit Tab) 1 Each Tablet 1 EA PO DAILY@0700, #30 TAB 11 Refills Follow Up/Instructions Goal/Follow Up: F.u with Dr Grove in 6 weeks Activity Activity: Activity as Tolerated Driving Instructions: You May Drive Nothing Inside Vagina: No Douching, No [place], No Tampons Diet Discharge Diet: No Restrictions Symptoms to Report to : Swelling Increased, Bleeding Excessive, Fever Over 101 Degrees F Copies To 1: NAMITA GROVE MD, HOLLY R MD Oct 19, 2022 09:46
[2022-10-19 14:30] VITALS: BP 120/77
[2022-10-19 14:40] VITALS: BP 120/77
== END 2022-10-19 14:40 | disposition home or self-care (01) | DRG 807 ==
LOC: WSo 02:27 → LDRP 02:28 → WSo 04:43 → LDRP 04:44 → OBSVTOIN 16:33 → LDRP 18:52
PROVIDERS: ADMIT Family Medicine; ATTEND Family Medicine
PROC: 10E0XZZ Delivery of Products of Conception, External Approach (ICD-10-PCS; principal; 2022-10-17)
DX: O60.14X0 Preterm labor third trimester with preterm delivery third trimester, not applicable or unspecified (principal); Z37.0 Single live birth; Z3A.35 35 weeks gestation of pregnancy; O24.425 Gestational diabetes mellitus in childbirth, controlled by oral hypoglycemic drugs; Z79.84 Long term (current) use of oral hypoglycemic drugs; Z28.310 Unvaccinated for COVID-19
CPT/HCPCS: 36415; 81000; 82947; 85025; 86850; 86900; 86901; 87088; 99212